=== PATIENT | female | born 1935 | race Caucasian/White ===

== ENCOUNTER → 2017-01-15 | Outpatient (CLI) | payer MEDICARE, BC ==
[2017-01-15 13:38] LABS: ALBUMIN/GLOBULIN RATIO 1.14 (1.00-1.93); BILIRUBIN,TOTAL 0.5 MG/DL (0.2-1.0); CALCIUM LEVEL 9.2 MG/DL (8.8-10.2); CREATININE FOR GFR 0.98 MG/DL (0.55-1.02); GLOMERULAR FILTRATION RATE 57.7 (>32); POTASSIUM SERUM 4.2 MEQ/L (3.5-5.1); TOTAL PROTEIN 7.5 GM/DL (6.4-8.2)
[2017-01-15 13:45] LABS: MEAN CORPUSCULAR HEMOGLOBIN 32.4 pg (27.0-33.0); MEAN CORPUSCULAR HGB CONC 32.8 g/dl (32.0-36.5); MEAN CORPUSCULAR VOLUME 98.8 fl (80.0-96.0); RED CELL DISTRIBUTION WIDTH 12.8 % (11.5-14.5); WHITE BLOOD COUNT 5.7 K/mm3 (4.0-10.0)
== END ==
LOC: M WUC 09:21
PROVIDERS: ATTEND Internal Medicine
DX: J45.909 Unspecified asthma, uncomplicated (principal); I10 Essential (primary) hypertension; E78.00 Pure hypercholesterolemia, unspecified

== ENCOUNTER 2017-06-10 09:59 | Emergency (ER) | payer MEDICARE, BC ==
[~2017-06-10] VITALS: Ht 152.4 cm; Wt 49.1 kg
[2017-06-10] MEDS ORDERED: LISI-538 (10:08)
[2017-06-10] MEDS ORDERED: ALBU17IN (10:08)
[2017-06-10] MEDS ORDERED: ALPR0.25 (10:08)
[2017-06-10] MEDS ORDERED: BISO5TAB5 (10:08)
[2017-06-10 10:56] LABS: BASO # 0.1 K/mm3 (0.0-0.2); BASO % 1.7 % (0.0-1.0); EOS # 0.4 K/mm3 (0.0-0.50); EOS % 5.9 % (0.0-3.0); LARGE UNSTAINED CELL # 0.1 K/mm3 (0.0-0.4); LARGE UNSTAINED CELL % 1.2 % (0.0-4.0); LYMPH % 13.9 % (24.0-44.0); MEAN CORPUSCULAR HEMOGLOBIN 31.7 pg (27.0-33.0); MEAN CORPUSCULAR HGB CONC 33.1 g/dl (32.0-36.5); MONO # 0.4 K/mm3 (0.0-0.8); MONO % 6.1 % (0.0-5.0); NEUTROPHILS % 71.2 % (36.0-66.0); PLATELET COUNT, AUTOMATED 314 k/mm3 (150-450); RED CELL DISTRIBUTION WIDTH 12.6 % (11.5-14.5)
[2017-06-10 11:26] LABS: ALBUMIN 3.4 GM/DL (3.2-5.2); ALBUMIN/GLOBULIN RATIO 0.85 (1.00-1.93); ALKALINE PHOSPHATASE 72 U/L (45-117); ALT/SGPT 19 U/L (12-78); ANION GAP 9 MEQ/L (8-16); AST/SGOT 19 U/L (15-37); BILIRUBIN,DIRECT 0.1 MG/DL (0.0-0.2); BILIRUBIN,TOTAL 0.4 MG/DL (0.2-1.0); BLOOD UREA NITROGEN 15 MG/DL (7-18); CALCIUM LEVEL 8.3 MG/DL (8.8-10.2); CARBON DIOXIDE LEVEL 27 MEQ/L (21-32); CHLORIDE LEVEL 105 MEQ/L (98-107); CREATININE FOR GFR 0.86 MG/DL (0.55-1.02); GLOMERULAR FILTRATION RATE > 60.0 (>32); GLUCOSE, FASTING 99 MG/DL (83-110); POTASSIUM SERUM 4.1 MEQ/L (3.5-5.1); SODIUM LEVEL 141 MEQ/L (136-145); TOTAL PROTEIN 7.4 GM/DL (6.4-8.2)
--- NOTE | 2017-06-10 11:53 | REP ---
CHEST X-RAY: Two views. HISTORY: Chest pain on the right. COMPARISON STUDY: September 25, 2016. FINDINGS: The lungs are hyperinflated free of infiltrate. There are linear opacities in both bases consistent with plate-like atelectasis and/or fibrosis. This is unchanged on the right. New on the left compared to prior study. There is slight blunting of the right lateral pleural angle. The heart is not felt to be enlarged. IMPRESSION: Slight blunting right lateral pleural angle. Bibasilar plate-like atelectasis versus fibrosis. Otherwise no acute disease. Hyperinflation. Signed by Federico Walker MD 06/10/2017 02:37 P
[2017-06-10] MEDS ORDERED: LASI20TA PO (13:06)
[2017-06-10 13:28] VITALS: BP 172/90
--- NOTE | 2017-06-11 06:07 | ECGEPIP ---
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
== END 2017-06-10 13:30 | disposition home or self-care (01) ==
LOC: M ED 09:59
DX: I10 Essential (primary) hypertension (principal); R07.89 Other chest pain; J45.909 Unspecified asthma, uncomplicated; K44.9 Diaphragmatic hernia without obstruction or gangrene; F41.9 Anxiety disorder, unspecified; Z87.448 Personal history of other diseases of urinary system; Z87.891 Personal history of nicotine dependence; Z79.899 Other long term (current) drug therapy; Z88.8 Allergy status to other drugs, medicaments and biological substances; Z88.1 Allergy status to other antibiotic agents

== ENCOUNTER → 2017-07-13 | Outpatient (REF) | payer MEDICARE, BC ==
[~2017-07-13] MED LIST: ALBU17IN INH; ALPR0.25 PO; BISO5TAB5; INDA125TA PO; LASI20TA PO; LISI-538 PO
[2017-07-13 14:47] LABS: FOLATE 23.4 NG/ML
[2017-07-13 15:59] LABS: ALBUMIN 3.6 GM/DL (3.2-5.2); ALBUMIN/GLOBULIN RATIO 0.95 (1.00-1.93); BILIRUBIN,TOTAL 0.5 MG/DL (0.2-1.0); CALCIUM LEVEL 9.2 MG/DL (8.8-10.2); CREATININE FOR GFR 1.08 MG/DL (0.55-1.02); GLOMERULAR FILTRATION RATE 51.5 (>32); TOTAL PROTEIN 7.4 GM/DL (6.4-8.2)
== END ==
LOC: M SFHCPLAZ 10:20
PROVIDERS: ATTEND Internal Medicine
DX: I10 Essential (primary) hypertension (principal); R41.3 Other amnesia

== ENCOUNTER 2017-08-25 08:46 | Day surgery (SDC) | payer MEDICARE, BC ==
[~2017-08-25] VITALS: Ht 162.6 cm; Wt 45.0 kg
[2017-08-25] MEDS ORDERED: LR 1,000 ML IV ONE (09:00)
[2017-08-25] MEDS ORDERED: CEFAZOLIN SOD 1 GM in APPROPRIATE DILUENT 1 EA IV ONE (09:00)
[2017-08-25] MEDS ORDERED: ceFAZolin SOD 1 GM in D5W MINI-BAG PLUS 50 ML IV ONE (09:15)
[2017-08-25] MEDS ORDERED: MUPIROCIN 2% OINT 22 GM TUBE As Ordered ONE (09:32)
[2017-08-25] MEDS ORDERED: ISOVUE-300 61% 50ML VIAL (Q9967) As Ordered ONE (09:33)
[2017-08-25] MEDS ORDERED: LIDOCAINE 1% SDV INJ 30 ML VIAL As Ordered ONE (09:33)
[2017-08-25] MEDS ORDERED: VANCOMYCIN 1000 MG/20 ML VIAL (J3370) As Ordered ONE (09:33)
[2017-08-25] MEDS ORDERED: LIDOCAINE 2% INJ 100 MG/5 ML SDV (FOR ANES.) As Ordered ONE (10:46)
[2017-08-25] MEDS ORDERED: MIDAZOLAM INJ 2 MG/2 ML VIAL (J2250) As Ordered ONE (10:46)
[2017-08-25] MEDS ORDERED: fentaNYL 100 MCG/2 ML INJECTION (J3010) As Ordered ONE (10:46)
[2017-08-25] MEDS ORDERED: PROPOFOL 200 MG/20 ML VIAL As Ordered ONE ×2 (10:46→12:23)
[2017-08-25] MEDS ORDERED: ePHEDrine SULFATE 25 MG/5 ML(5MG/ML) SYRINGE As Ordered ONE (11:31)
[2017-08-25] MEDS ORDERED: PHENYLephrine HCL 500 MCG/5 ML (100MCG/ML) SYRINGE (J2370) As Ordered ONE ×2 (11:32→12:23)
[2017-08-25] MEDS ORDERED: ALPRAZolam 0.25 MG TAB PO PRN (13:45)
[2017-08-25] MEDS ORDERED: LR 1,000 ML IV SCH (13:45)
[2017-08-25] MEDS ORDERED: ONDANSETRON 4MG/2ML VIAL (J2405) IV PRN (13:45)
[2017-08-25] MEDS ORDERED: ACETAMINOPHEN TAB 650MG DOSE (2X325MG) PO PRN (13:45)
[2017-08-25] MEDS ORDERED: ALBUTEROL 90 MCG/ACT 8GM HFA INHALER INH PRN (13:45)
[2017-08-25] MEDS ORDERED: fentaNYL 100 MCG/2 ML INJECTION (J3010) IV PRN (13:45)
--- NOTE | 2017-08-25 14:00 | REP ---
C-ARM VIEW CHEST: C-arm view of the chest is performed during placement of a dual lead pacemaker. Atrial and ventricular leads appear to be in good position. 4 minutes 25 seconds fluoroscopy time utilized. Signed by Jason Moore MD 08/26/2017 04:23 P
[2017-08-25 14:27] VITALS: BP 138/67
--- NOTE | 2017-08-25 14:39 | REP ---
Clinical: Postoperative assessment. Comparison: 08/16/2017. Findings: Mediastinum and cardiac silhouette are within normal limits and stable. Lung garnica demonstrate chronic stable interstitial changes. No consolidation, effusion, or pneumothorax. Skeletal structures demonstrate age-related degenerative change. Impression: Chronic stable changes. No acute cardiopulmonary process appreciated. Signed by Jorge Beltran MD 08/25/2017 01:23 P
[2017-08-25 15:00] VITALS: BP 125/61
[2017-08-25 16:00] VITALS: BP 137/66
[2017-08-25 17:00] VITALS: BP 154/78
[2017-08-25] MEDS: LISINOPRIL 20 MG TAB PO SCH (17:04)
[2017-08-25 20:11] VITALS: BP 102/59
[2017-08-25] MEDS ORDERED: CALCIUM CARBONATE 500 MG CHEW U/D PO PRN (20:30)
[2017-08-26] VITALS: BP 117/63
[2017-08-26] MEDS ORDERED: SLF 3 ML SYR IV PRN (00:45)
--- NOTE | 2017-08-26 01:05 | ECGEPIP ---
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 No left anterior fascicular block noted Electronically Signed On 08-26-2017 1:05:11 EST by Amadeo Pantoja
[2017-08-26 03:35] VITALS: BP 120/69
[2017-08-26] MEDS ORDERED: SLF 3 ML SYR IV SCH (06:00)
[2017-08-26] MEDS ORDERED: ATENOLOL 25 MG TAB PO ONE (06:45)
--- NOTE | 2017-08-26 06:58 | RO ---
DATE OF PROCEDURE: 08/25/2017 PREPROCEDURE DIAGNOSIS: Syncope associated with right bundle branch block and left anterior vesicular block. POSTPROCEDURE DIAGNOSIS: Syncope associated with right bundle branch block and left anterior vesicular block. FINDINGS: Syncope associated with right bundle branch block and left anterior vesicular block. PROCEDURE: Implantation of a permanent dual chamber pacemaker (Biotronic). SURGEON: Billy Lynch MD FRUIT PICKER: None. ANESTHESIA: Lidocaine 1% local, monitored anesthetic care. ESTIMATED BLOOD LOSS: 5 mL. DRAINS: None. COMPLICATIONS: None. BIOPSIES: None. PROCEDURE DESCRIPTION: The patient was prepped and draped over the left pectoral region. 3M Ioban band film was applied. Lidocaine 1% was used for local anesthetic. A left subclavian venogram was performed in real-time using a total of 20 mL consisting of 15 mL of contrast and 5 mL of normal saline which was injected via a vein in the left antecubital region and this was used in real-time to localize the left subclavian vein which was entered by percutaneous technique with a micropuncture needle. This was then guidewire exchanged for a guidewire that came with one of the #6-Fijian sheath. Next, incision approximately 2.5 inches in length was made with a PEAK PlasmaBlade approximately parallel to the left clavicle and 1 cm above the skin at the site of the guidewire. The PEAK PlasmaBlade was used to get through the fatty layer and through the fibrous Lencho's fascia. The pacemaker pocket was then formed in a caudal direction using blunt dissection using two fingers to separate the prepectoral fascia from the Lencho's fascia. Next, the guidewire was pulled through the skin incision site. Next, another micropuncture needle was used to obtain a separate vein access entry at the level of the pectoral muscle and using the first guidewire as a radiographic guide. This was then guidewire exchanged for a guidewire that came with the other #6-Fijian sheath. Next, a #6-Fijian sheath with introducer was placed over the more lateral of the guidewires and was used for vein access for the right ventricular lead. The right ventricular lead was placed into the right ventricle apex position and secured with a total of ten turns. This position was found to be electrically and anatomically satisfactory. No diaphragm stimulation could be palpated on either side of the diaphragm with high voltage pacing of the ventricle. The #6-Fijian sheath was then broken apart and removed and the ventricular lead was secured to the pectoral muscle with the supplied tie down sleeve using two individual sutures consisting of #0 Ethibond. Next, another #6-Fijian sheath was placed over the more medial of the guidewires and advanced into the left subclavian vein. This was used for vein access for the right atrial lead. The right atrial lead was placed into the right atrial appendage position with a preformed J stylet. It was secured with a total of ten turns. This position was found to be electrically and anatomically satisfactory and no diaphragm stimulation could be palpated on either side with high output pacing. The #6-Fijian sheath was broken apart and removed and the atrial lead was secured to the pectoral muscle using the supplied tie down sleeve using two sutures consisting of #0 Ethibond. Next, another #0 Ethibond suture was placed to the pectoral muscle to serve as the tie down for the pacemaker pulse generator. The new pacemaker pulse generator was then plugged into the terminal pins of the ventricle and atrial leads and secured by tightening the set screws with the Hex screwdriver. The excess lead material was coiled underneath the pacemaker pulse generator and placed along with the pacemaker generator into the pacemaker pocket. The deep layer was closed using individual sutures consisting of #2-0 Vicryl. The skin was closed using subcuticular stitch consisting of #4-0 Biosyn with the first suture tied deep and the last suture pulled through the skin 1 cm lateral to the end of the incision. The suture was then snipped at the level of the skin. Two layers of Dermabond was applied. Next Steri-Strips were applied cross-humphrey across the length of the incision. The pacemaker pulse generator implanted was a T-ZONE Edora 8 DR-T with serial number [id number]. The right ventricle lead implanted was a T-ZONE Solia S53 with serial number [id number]. Testing in the operating room with the pulse analyzer and bipolar configuration for the right ventricle lead showed captured threshold of 0.9 volts of 0.4 ms with R wave amplitude of 6.6 mV and lead impedance of 741 ohms. The atrial lead implanted was a Biotronic Solia S45 with serial number [id number]. Final testing in the operating room with the pulse analyzer for the right atrial lead showed captured threshold of 0.9 volts at 0.4 ms with P wave amplitude of 5.7 mV and lead impedance of 448 ohms.
[2017-08-26 07:40] VITALS: BP 116/62
--- NOTE | 2017-08-26 08:31 | REP ---
Clinical: Status post pacemaker. Technique: PA and lateral. Findings: Dual lead pacemaker with tips overlying the right atrium and right ventricle. Mediastinum and cardiac silhouette are normal. The lung garnica demonstrate stable chronic changes without acute consolidation, effusion, or pneumothorax. Skeletal structures are intact. Impression: Status post pacemaker. No pneumothorax. No acute cardiopulmonary process. Signed by Jorge Beltran MD 08/26/2017 08:23 A
[2017-08-26 09:13] VITALS: BP 134/68
[2017-08-26] MEDS: LISINOPRIL 20 MG TAB PO SCH (09:13)
[2017-08-26 09:35] VITALS: BP 116/70
[2017-08-26 09:41] VITALS: BP 116/70
== END 2017-08-26 12:25 | disposition home or self-care (01) ==
LOC: M SDC 08:46 → M PCU 14:27 → M SDC 08-26 12:25
PROVIDERS: ATTEND Internal Medicine Cardiovascular Disease
DX: R55 Syncope and collapse (principal); I45.10 Unspecified right bundle-branch block; I44.4 Left anterior fascicular block; I10 Essential (primary) hypertension; Z79.899 Other long term (current) drug therapy; J45.909 Unspecified asthma, uncomplicated; Z87.891 Personal history of nicotine dependence; Z92.21 Personal history of antineoplastic chemotherapy; Z85.51 Personal history of malignant neoplasm of bladder
CPT/HCPCS: 33208; 71010; 71020; 76000; 93005; C1785; C1898; J0690; J2250; J2370; J3010; Q9967

== ENCOUNTER → 2017-11-22 | Outpatient (CLI) | payer MEDICARE, BC | LOC: M RAD 16:41 | DX: I62.03 Nontraumatic chronic subdural hemorrhage (principal); I73.9 Peripheral vascular disease, unspecified; G30.1 Alzheimer's disease with late onset | CPT/HCPCS: 70450 ==

== ENCOUNTER → 2017-11-26 | Outpatient (CLI) | payer MEDICARE, BC ==
[2017-11-26 13:25] LABS: BASO # 0.1 10^3/uL (0.0-0.2); BASO % 1.3 % (0.0-1.0); EOS # 0.2 10^3/uL (0.0-0.50); EOS % 2.7 % (0.0-3.0); HEMATOCRIT 37.4 % (36.0-47.0); HEMOGLOBIN 12.3 g/dl (12.0-16.0); IMMATURE GRANULOCYTE % 0.3 % (0-3.0); LYMPH # 1.1 10^3/uL (1.5-4.5); LYMPH % 18.1 % (24.0-44.0); MEAN CORPUSCULAR HEMOGLOBIN 31.6 pg (27.0-33.0); MEAN CORPUSCULAR HGB CONC 32.9 g/dl (32.0-36.5); MEAN CORPUSCULAR VOLUME 96.1 fl (80.0-96.0); MONO # 0.6 10^3/uL (0.0-0.8); NEUTROPHILS # 4.3 10^3/uL (1.8-7.7); NEUTROPHILS % 67.6 % (36.0-66.0); PLATELET COUNT, AUTOMATED 277 10^3/uL (150-450); RED BLOOD COUNT 3.89 10^6/uL (4.00-5.40); RED CELL DISTRIBUTION WIDTH 13.3 % (11.5-14.5); WHITE BLOOD COUNT 6.3 10^3/uL (4.0-10.0)
[2017-11-26 13:36] LABS: INR 1.08; PROTHROMBIN TIME 14.2 SECONDS (12.4-14.5)
[2017-11-26 13:37] LABS: PARTIAL THROMBOPLASTIN TIME 30.1 SECONDS (26.8-37.9)
[2017-11-26 13:40] LABS: COLLAGEN EPINEPHRINE 88 SECONDS (74-162)
[2017-11-26 14:00] LABS: ALBUMIN 3.6 GM/DL (3.2-5.2); ALKALINE PHOSPHATASE 62 U/L (45-117); ALT/SGPT 24 U/L (12-78); ANION GAP 3 MEQ/L (8-16); AST/SGOT 26 U/L (7-37); BILIRUBIN,TOTAL 0.4 MG/DL (0.2-1.0); BLOOD UREA NITROGEN 17 MG/DL (7-18); CALCIUM LEVEL 9.4 MG/DL (8.8-10.2); CARBON DIOXIDE LEVEL 35 MEQ/L (21-32); CHLORIDE LEVEL 99 MEQ/L (98-107); CREATININE FOR GFR 0.84 MG/DL (0.55-1.30); GLOMERULAR FILTRATION RATE > 60.0 (>32); GLUCOSE, FASTING 89 MG/DL (70-100); POTASSIUM SERUM 4.3 MEQ/L (3.5-5.1); SODIUM LEVEL 137 MEQ/L (136-145); TOTAL PROTEIN 7.2 GM/DL (6.4-8.2)
== END ==
LOC: M LAB 12:34
DX: Z01.818 Encounter for other preprocedural examination (principal); I62.03 Nontraumatic chronic subdural hemorrhage; F09 Unspecified mental disorder due to known physiological condition; E78.00 Pure hypercholesterolemia, unspecified; I10 Essential (primary) hypertension; F41.9 Anxiety disorder, unspecified; I47.1 Supraventricular tachycardia; H53.30 Unspecified disorder of binocular vision; Z85.51 Personal history of malignant neoplasm of bladder; Z95.0 Presence of cardiac pacemaker
CPT/HCPCS: 71046

== ENCOUNTER → 2017-11-29 | Outpatient (REF) | payer MEDICARE, BC | LOC: M LAB REF 15:09 | DX: Z01.818 Encounter for other preprocedural examination (principal); I62.03 Nontraumatic chronic subdural hemorrhage; Z95.0 Presence of cardiac pacemaker; Z85.51 Personal history of malignant neoplasm of bladder | CPT/HCPCS: 87086 ==

== ENCOUNTER 2017-12-03 05:35 | Inpatient (IN) | payer MEDICARE, BC ==
[2017-12-03] MEDS: LR 1,000 ML IV ×2 (06:00→12:15)
[2017-12-03] MEDS ORDERED: REMIFENTANIL 1MG 3ML VIAL As Ordered (06:55)
[2017-12-03] MEDS ORDERED: GLYCOPYRROLATE INJ 0.2 MG/ML 2 ML VIAL As Ordered (06:55)
[2017-12-03] MEDS ORDERED: PROPOFOL 200 MG/20 ML VIAL As Ordered (06:55)
[2017-12-03] MEDS ORDERED: ROCURONIUM BROMIDE 50 MG/5 ML VIAL As Ordered (06:55)
[2017-12-03] MEDS ORDERED: LIDOCAINE 2% INJ 100 MG/5 ML SDV (FOR ANES.) As Ordered (06:55)
[2017-12-03] MEDS ORDERED: KETOROLAC 60 MG/2 ML VIAL (J1885) As Ordered (06:55)
[2017-12-03] MEDS ORDERED: NEOSTIGMINE 10 MG/10 ML VIAL (J2710) As Ordered (06:55)
[2017-12-03] MEDS ORDERED: LIDOCAINE 2% JELLY 30 ML As Ordered (06:55)
[2017-12-03] MEDS ORDERED: MIDAZOLAM INJ 2 MG/2 ML VIAL (J2250) As Ordered (06:55)
[2017-12-03] MEDS ORDERED: dexameTHASONE 4 MG/ML 1ML VIAL (J1100) As Ordered (06:55)
[2017-12-03] MEDS ORDERED: ONDANSETRON 4MG/2ML VIAL (J2405) As Ordered (06:55)
[2017-12-03] MEDS ORDERED: fentaNYL 100 MCG/2 ML INJECTION (J3010) As Ordered (06:55)
[2017-12-03] MEDS: levETIRAcetam 250MG TABLET (KEPPRA) PO ×2 (09:00→20:48)
[2017-12-03 09:59] LABS: ABG BASE EXCESS 1.1 (-2.0-2.0); ABG DEVICE MECHAN. VENT; ABG FIO2 54; ABG HCO3 25.5 MEQ/L (22.0-26.0); ABG PARTIAL PRESSURE CO2 40.1 mmHg (35.0-45.0); ABG PARTIAL PRESSURE O2 280.9 mmHg (75.0-100.0); ABG SITE ART LINE; ABG STANDARD HCO3 25.5 MEQ/L (22.0-26.0); ABG TOTAL CO2 26.8 MEQ/L (23.0-31.0); ABG pH (ARTERIAL) 7.422 UNITS (7.350-7.450)
[2017-12-03] MEDS: THROMBIN SOLN 20,000 UNITS KIT As Ordered (10:02)
[2017-12-03] MEDS: levETIRAcetam INJection 500 MG in D5W MINI-BAG PLUS 100 ML IV (10:30)
[2017-12-03] MEDS ORDERED: PHENYLephrine HCL 500 MCG/5 ML (100MCG/ML) SYRINGE (J2370) As Ordered (10:40)
[2017-12-03] MEDS ORDERED: ePHEDrine INJ 50 MG/ML VIAL As Ordered (10:40)
[2017-12-03] MEDS: LIDOCAINE W/EPINEPHRINE 1% 20ML VIAL As Ordered (11:15)
[2017-12-03] MEDS ORDERED: fentaNYL 100 MCG/2 ML INJECTION (J3010) IV (12:15)
[2017-12-03] MEDS ORDERED: ONDANSETRON 4MG/2ML VIAL (J2405) IV ×2 (12:15→13:15)
[2017-12-03] MEDS ORDERED: ALBUTEROL 6.7GM INHALER **FOR ANES. CART/OMNICELL ONLY INH (12:30)
[2017-12-03] MEDS: KCL 20MEQ IN D5/0.45NS 1000ML 1,000 ML IV ×2 (12:52→23:11)
[2017-12-03] MEDS: ACETAMINOPHEN TAB 650MG DOSE (2X325MG) PO (13:14)
[2017-12-03] MEDS: KETOROLAC 30 MG/ML VIAL (J1885) IV ×2 (14:26→23:11)
[2017-12-03] MEDS ORDERED: CEFAZOLIN SOD 1 GM in APPROPRIATE DILUENT 1 EA IV (15:00)
[2017-12-03] MEDS: CEFAZOLIN SOD 1 GM in APPROPRIATE DILUENT 1 EA IV (16:13)
[2017-12-03] MEDS: ALPRAZolam 0.25 MG TAB PO (20:48)
[2017-12-03 23:52] LABS: HEMATOCRIT 28.7 % (36.0-47.0); HEMOGLOBIN 9.6 g/dl (12.0-16.0); MEAN CORPUSCULAR HEMOGLOBIN 32.3 pg (27.0-33.0); MEAN CORPUSCULAR HGB CONC 33.4 g/dl (32.0-36.5); MEAN CORPUSCULAR VOLUME 96.6 fl (80.0-96.0); PLATELET COUNT, AUTOMATED 185 10^3/uL (150-450); RED BLOOD COUNT 2.97 10^6/uL (4.00-5.40); RED CELL DISTRIBUTION WIDTH 13.4 % (11.5-14.5)
[2017-12-04 00:15] LABS: INR 1.11; PROTHROMBIN TIME 14.5 SECONDS (12.4-14.5)
[2017-12-04] MEDS: CEFAZOLIN SOD 1 GM in APPROPRIATE DILUENT 1 EA IV ×3 (00:37→17:04)
[2017-12-04 01:45] LABS: ALBUMIN 2.7 GM/DL (3.2-5.2); ALBUMIN/GLOBULIN RATIO 0.87 (1.00-1.93); ALKALINE PHOSPHATASE 44 U/L (45-117); ALT/SGPT 20 U/L (12-78); AST/SGOT 24 U/L (7-37); BILIRUBIN,DIRECT 0.1 MG/DL (0.0-0.2); BILIRUBIN,TOTAL 0.4 MG/DL (0.2-1.0); TOTAL PROTEIN 5.8 GM/DL (6.4-8.2)
[2017-12-04 04:42] LABS: HEMOGLOBIN 9.6 g/dl (12.0-16.0); MEAN CORPUSCULAR HEMOGLOBIN 31.5 pg (27.0-33.0); MEAN CORPUSCULAR HGB CONC 33.1 g/dl (32.0-36.5); MEAN CORPUSCULAR VOLUME 95.1 fl (80.0-96.0); PLATELET COUNT, AUTOMATED 226 10^3/uL (150-450); RED BLOOD COUNT 3.05 10^6/uL (4.00-5.40); RED CELL DISTRIBUTION WIDTH 13.4 % (11.5-14.5); WHITE BLOOD COUNT 7.6 10^3/uL (4.0-10.0)
[2017-12-04 05:08] LABS: ALBUMIN 2.6 GM/DL (3.2-5.2); ALBUMIN/GLOBULIN RATIO 0.84 (1.00-1.93); ALKALINE PHOSPHATASE 45 U/L (45-117); ALT/SGPT 18 U/L (12-78); AST/SGOT 23 U/L (7-37); BILIRUBIN,DIRECT 0.1 MG/DL (0.0-0.2); BILIRUBIN,TOTAL 0.5 MG/DL (0.2-1.0); TOTAL PROTEIN 5.7 GM/DL (6.4-8.2)
[2017-12-04 05:09] LABS: ALBUMIN 2.8 GM/DL (3.2-5.2); ALBUMIN/GLOBULIN RATIO 1.08 (1.00-1.93); ALKALINE PHOSPHATASE 42 U/L (45-117); ALT/SGPT 17 U/L (12-78); ANION GAP 6 MEQ/L (8-16); AST/SGOT 22 U/L (7-37); BILIRUBIN,TOTAL 0.5 MG/DL (0.2-1.0); BLOOD UREA NITROGEN 11 MG/DL (7-18); CALCIUM LEVEL 7.9 MG/DL (8.8-10.2); CARBON DIOXIDE LEVEL 30 MEQ/L (21-32); CHLORIDE LEVEL 100 MEQ/L (98-107); CREATININE FOR GFR 0.61 MG/DL (0.55-1.30); GLOMERULAR FILTRATION RATE > 60.0 (>32); GLUCOSE, FASTING 130 MG/DL (70-100); POTASSIUM SERUM 4.2 MEQ/L (3.5-5.1); SODIUM LEVEL 136 MEQ/L (136-145); TOTAL PROTEIN 5.4 GM/DL (6.4-8.2)
[2017-12-04 05:10] LABS: OSMOLALITY SERUM 281 MOSM/KG (280-301)
[2017-12-04 05:37] LABS: OSMOLALITY URINE 781 MOSM/KG (500-800)
[2017-12-04 05:52] LABS: CHLORIDE,RANDOM URINE 206 MEQ/L; SODIUM,RANDOM URINE 117 MEQ/L
[2017-12-04] MEDS: ACETAMINOPH W/CODEINE #3 TAB UD PO ×2 (06:19→12:14)
[2017-12-04] MEDS: levETIRAcetam 250MG TABLET (KEPPRA) PO ×2 (09:01→20:23)
[2017-12-04] MEDS: INDAPAMIDE 1.25MG TABLET PO (09:01)
[2017-12-04] MEDS: ALPRAZolam 0.25 MG TAB PO (09:01)
[2017-12-04] MEDS ORDERED: LORazepam 2 MG/ML VIAL (J2060) As Ordered (14:28)
[2017-12-04] MEDS: LORazepam 2 MG/ML VIAL (J2060) IV (14:33)
[2017-12-04] MEDS ORDERED: LORazepam 2 MG/ML VIAL (J2060) IV (17:00)
[2017-12-05] MEDS: CEFAZOLIN SOD 1 GM in APPROPRIATE DILUENT 1 EA IV ×3 (00:19→16:45)
[2017-12-05] MEDS: ALPRAZolam 0.25 MG TAB PO (01:49)
[2017-12-05] MEDS: ACETAMINOPHEN TAB 650MG DOSE (2X325MG) PO (02:22)
[2017-12-05 03:13] LABS: OSMOLALITY URINE 301 MOSM/KG (500-800)
[2017-12-05 03:21] LABS: CHLORIDE,RANDOM URINE 118 MEQ/L; POTASSIUM RANDOM URINE 14.1 MEQ/L; SODIUM,RANDOM URINE 117 MEQ/L
[2017-12-05 05:33] LABS: HEMATOCRIT 31.2 % (36.0-47.0); HEMOGLOBIN 10.6 g/dl (12.0-16.0); MEAN CORPUSCULAR HEMOGLOBIN 32.2 pg (27.0-33.0); MEAN CORPUSCULAR VOLUME 94.8 fl (80.0-96.0); PLATELET COUNT, AUTOMATED 219 10^3/uL (150-450); RED BLOOD COUNT 3.29 10^6/uL (4.00-5.40); RED CELL DISTRIBUTION WIDTH 13.1 % (11.5-14.5); WHITE BLOOD COUNT 8.1 10^3/uL (4.0-10.0)
[2017-12-05 06:03] LABS: OSMOLALITY SERUM 274 MOSM/KG (280-301)
[2017-12-05 06:16] LABS: ALBUMIN 2.8 GM/DL (3.2-5.2); ALBUMIN/GLOBULIN RATIO 0.97 (1.00-1.93); ALKALINE PHOSPHATASE 52 U/L (45-117); ALT/SGPT 20 U/L (12-78); ANION GAP 7 MEQ/L (8-16); AST/SGOT 24 U/L (7-37); BILIRUBIN,TOTAL 0.5 MG/DL (0.2-1.0); BLOOD UREA NITROGEN 10 MG/DL (7-18); CARBON DIOXIDE LEVEL 30 MEQ/L (21-32); CHLORIDE LEVEL 98 MEQ/L (98-107); GLOMERULAR FILTRATION RATE > 60.0 (>32); GLUCOSE, FASTING 99 MG/DL (70-100); POTASSIUM SERUM 3.7 MEQ/L (3.5-5.1); SODIUM LEVEL 135 MEQ/L (136-145); TOTAL PROTEIN 5.7 GM/DL (6.4-8.2)
[2017-12-05] MEDS: INDAPAMIDE 1.25MG TABLET PO (08:10)
[2017-12-05] MEDS: ACETAMINOPH W/CODEINE #3 TAB UD PO ×2 (08:11→16:07)
[2017-12-05] MEDS: levETIRAcetam 250MG TABLET (KEPPRA) PO ×2 (08:11→20:32)
[2017-12-06] MEDS: CEFAZOLIN SOD 1 GM in APPROPRIATE DILUENT 1 EA IV ×3 (00:08→17:12)
[2017-12-06] MEDS: ALPRAZolam 0.25 MG TAB PO ×2 (03:21→10:17)
[2017-12-06 04:34] LABS: BASO % 0.4 % (0.0-1.0); EOS # 0.6 10^3/uL (0.0-0.50); EOS % 8.2 % (0.0-3.0); HEMATOCRIT 34.7 % (36.0-47.0); HEMOGLOBIN 11.9 g/dl (12.0-16.0); IMMATURE GRANULOCYTE % 0.5 % (0-3.0); LYMPH # 0.9 10^3/uL (1.5-4.5); LYMPH % 12.5 % (24.0-44.0); MEAN CORPUSCULAR HEMOGLOBIN 32.3 pg (27.0-33.0); MEAN CORPUSCULAR HGB CONC 34.3 g/dl (32.0-36.5); MEAN CORPUSCULAR VOLUME 94.3 fl (80.0-96.0); MONO # 0.7 10^3/uL (0.0-0.8); MONO % 9.9 % (0.0-5.0); NEUTROPHILS # 5.1 10^3/uL (1.8-7.7); NEUTROPHILS % 68.5 % (36.0-66.0); PLATELET COUNT, AUTOMATED 260 10^3/uL (150-450); RED BLOOD COUNT 3.68 10^6/uL (4.00-5.40); RED CELL DISTRIBUTION WIDTH 12.9 % (11.5-14.5); WHITE BLOOD COUNT 7.5 10^3/uL (4.0-10.0)
[2017-12-06 04:48] LABS: ANION GAP 6 MEQ/L (8-16); BLOOD UREA NITROGEN 11 MG/DL (7-18); CALCIUM LEVEL 8.8 MG/DL (8.8-10.2); CARBON DIOXIDE LEVEL 31 MEQ/L (21-32); CHLORIDE LEVEL 98 MEQ/L (98-107); GLOMERULAR FILTRATION RATE > 60.0 (>32); GLUCOSE, FASTING 95 MG/DL (70-100); POTASSIUM SERUM 3.6 MEQ/L (3.5-5.1); SODIUM LEVEL 135 MEQ/L (136-145)
[2017-12-06] MEDS: INDAPAMIDE 1.25MG TABLET PO (08:45)
[2017-12-06] MEDS: levETIRAcetam 250MG TABLET (KEPPRA) PO ×2 (08:45→20:42)
[2017-12-07] MEDS: ALPRAZolam 0.25 MG TAB PO (00:49)
[2017-12-07] MEDS: CEFAZOLIN SOD 1 GM in APPROPRIATE DILUENT 1 EA IV ×3 (00:49→09:00)
[2017-12-07] MEDS: levETIRAcetam 250MG TABLET (KEPPRA) PO ×2 (08:18→09:00)
[2017-12-07] MEDS: INDAPAMIDE 1.25MG TABLET PO ×2 (08:19→09:00)
[2017-12-07 14:47] LABS: HEMATOCRIT 37.8 % (36.0-47.0); HEMOGLOBIN 12.8 g/dl (12.0-16.0); MEAN CORPUSCULAR HEMOGLOBIN 31.9 pg (27.0-33.0); MEAN CORPUSCULAR HGB CONC 33.9 g/dl (32.0-36.5); MEAN CORPUSCULAR VOLUME 94.3 fl (80.0-96.0); PLATELET COUNT, AUTOMATED 299 10^3/uL (150-450); RED BLOOD COUNT 4.01 10^6/uL (4.00-5.40); RED CELL DISTRIBUTION WIDTH 12.8 % (11.5-14.5); WHITE BLOOD COUNT 7.8 10^3/uL (4.0-10.0)
[2017-12-07 15:11] LABS: ANION GAP 6 MEQ/L (8-16); BLOOD UREA NITROGEN 17 MG/DL (7-18); CALCIUM LEVEL 9.1 MG/DL (8.8-10.2); CARBON DIOXIDE LEVEL 31 MEQ/L (21-32); CHLORIDE LEVEL 95 MEQ/L (98-107); CREATININE FOR GFR 0.74 MG/DL (0.55-1.30); GLOMERULAR FILTRATION RATE > 60.0 (>32); GLUCOSE, FASTING 122 MG/DL (70-100); POTASSIUM SERUM 3.8 MEQ/L (3.5-5.1); SODIUM LEVEL 132 MEQ/L (136-145)
== END 2017-12-07 16:00 | disposition home health service (06) | DRG 25 ==
LOC: M OR 05:35 → M ICU 12:37 → M PCU 12-06 18:52
PROC: 009 Central Nervous System and Cranial Nerves, Drainage (ICD-10-PCS; principal; 2017-12-03 07:30)
DX: I62.02 Nontraumatic subacute subdural hemorrhage (principal); G93.40 Encephalopathy, unspecified; I62.03 Nontraumatic chronic subdural hemorrhage; H54.8 Legal blindness, as defined in USA; F03.90 Unspecified dementia, unspecified severity, without behavioral disturbance, psychotic disturbance, mood disturbance, and anxiety; I10 Essential (primary) hypertension; M19.90 Unspecified osteoarthritis, unspecified site; G47.00 Insomnia, unspecified; J45.909 Unspecified asthma, uncomplicated; H35.30 Unspecified macular degeneration; Z85.51 Personal history of malignant neoplasm of bladder; Z88.8 Allergy status to other drugs, medicaments and biological substances; Z95.0 Presence of cardiac pacemaker; F09 Unspecified mental disorder due to known physiological condition

== ENCOUNTER → 2018-02-16 | Outpatient (REF) | payer MEDICARE, BC ==
[2018-02-16 07:13] LABS: ANION GAP 5 MEQ/L (8-16); BLOOD UREA NITROGEN 18 MG/DL (7-18); CALCIUM LEVEL 9.2 MG/DL (8.8-10.2); CARBON DIOXIDE LEVEL 30 MEQ/L (21-32); CHLORIDE LEVEL 96 MEQ/L (98-107); CREATININE FOR GFR 0.81 MG/DL (0.55-1.30); GLOMERULAR FILTRATION RATE > 60.0 (>32); GLUCOSE, FASTING 103 MG/DL (70-100); POTASSIUM SERUM 3.7 MEQ/L (3.5-5.1); SODIUM LEVEL 131 MEQ/L (136-145)
== END ==
LOC: SKLAB8 08:00
DX: I10 Essential (primary) hypertension (principal)
CPT/HCPCS: 36415

== ENCOUNTER 2018-03-08 18:03 | Emergency (ER) | payer MEDICARE, BC ==
[2018-03-08] MEDS: LORazepam 2 MG TAB PO (18:34)
== END 2018-03-08 20:25 | disposition home or self-care (01) ==
LOC: M ED 18:03
DX: F03.90 Unspecified dementia, unspecified severity, without behavioral disturbance, psychotic disturbance, mood disturbance, and anxiety (principal); I10 Essential (primary) hypertension; J45.909 Unspecified asthma, uncomplicated; H35.30 Unspecified macular degeneration; Z79.899 Other long term (current) drug therapy; Z88.1 Allergy status to other antibiotic agents; Z88.5 Allergy status to narcotic agent; Z88.8 Allergy status to other drugs, medicaments and biological substances
CPT/HCPCS: 99284

== ENCOUNTER 2018-03-15 08:46 | Inpatient (IN) | payer MEDICARE, BC ==
[2018-03-15] MEDS: ALPRAZolam 0.25 MG TAB PO ×3 (10:48→21:27)
[2018-03-15 11:22] LABS: BASO # 0.1 10^3/uL (0.0-0.2); BASO % 1.1 % (0.0-1.0); EOS # 0.3 10^3/uL (0.0-0.50); EOS % 4.6 % (0.0-3.0); HEMATOCRIT 40.5 % (36.0-47.0); HEMOGLOBIN 13.4 g/dl (12.0-15.5); IMMATURE GRANULOCYTE % 0.3 % (0-3.0); LYMPH # 1.5 10^3/uL (1.5-4.5); LYMPH % 22.5 % (24.0-44.0); MEAN CORPUSCULAR HEMOGLOBIN 31.5 pg (27.0-33.0); MEAN CORPUSCULAR HGB CONC 33.1 g/dl (32.0-36.5); MEAN CORPUSCULAR VOLUME 95.1 fl (80.0-96.0); MONO # 0.6 10^3/uL (0.0-0.8); MONO % 9.7 % (0.0-5.0); NEUTROPHILS % 61.8 % (36.0-66.0); PLATELET COUNT, AUTOMATED 228 10^3/uL (150-450); RED BLOOD COUNT 4.26 10^6/uL (4.00-5.40); RED CELL DISTRIBUTION WIDTH 13.7 % (11.5-14.5); WHITE BLOOD COUNT 6.5 10^3/uL (4.0-10.0)
[2018-03-15 11:35] LABS: ANION GAP 5 MEQ/L (8-16); BLOOD UREA NITROGEN 16 MG/DL (7-18); CALCIUM LEVEL 9.4 MG/DL (8.8-10.2); CARBON DIOXIDE LEVEL 30 MEQ/L (21-32); CHLORIDE LEVEL 108 MEQ/L (98-107); CREATININE FOR GFR 0.99 MG/DL (0.55-1.30); GLOMERULAR FILTRATION RATE 56.9 (>32); GLUCOSE, FASTING 100 MG/DL (70-100); POTASSIUM SERUM 3.8 MEQ/L (3.5-5.1); SODIUM LEVEL 143 MEQ/L (136-145)
[2018-03-15 11:47] LABS: ALBUMIN 4.1 GM/DL (3.2-5.2); ALBUMIN/GLOBULIN RATIO 1.14 (1.00-1.93); ALKALINE PHOSPHATASE 57 U/L (45-117); ALT/SGPT 27 U/L (12-78); AST/SGOT 20 U/L (7-37); BILIRUBIN,DIRECT 0.2 MG/DL (0.0-0.2); BILIRUBIN,TOTAL 0.6 MG/DL (0.2-1.0); SALICYLATE LEVEL < 1.7 MG/DL (5.0-30.0); TOTAL PROTEIN 7.7 GM/DL (6.4-8.2)
[2018-03-15 11:49] LABS: ACETAMINOPHEN LEVEL < 2.0 UG/ML (10.0-30.0); ETHYL ALCOHOL (ETHANOL) < 0.003 % (0.000-0.010)
[2018-03-15 13:11] LABS: AMPHETAMINES LEVEL URINE NEGATIVE (NEGATIVE); BARBITURATES URINE NEGATIVE (NEGATIVE); BENZODIAZEPINES URINE POSITIVE (NEGATIVE); CANNABINOIDS URINE NEGATIVE (NEGATIVE); COCAINE METABOLITE URINE NEGATIVE (NEGATIVE); METHADONE URINE NEGATIVE (NEGATIVE); OPIATES URINE NEGATIVE (NEGATIVE); PHENCYCLIDINE URINE NEGATIVE (NEGATIVE)
[2018-03-15] MEDS ORDERED: MAALOX 30 ML SUSP *UDC PO (17:45)
[2018-03-15] MEDS ORDERED: MOM 30ML SUSPENSION UDC PO (17:45)
[2018-03-15] MEDS ORDERED: traZODone 50 MG TAB PO (17:45)
[2018-03-15] MEDS: QUEtiapine FUMARATE 50 MG TAB PO (21:27)
[2018-03-16] MEDS: QUEtiapine FUMARATE 50 MG TAB PO (09:00)
[2018-03-16] MEDS: ALPRAZolam 0.25 MG TAB PO ×2 (09:00→13:00)
[2018-03-16] MEDS ORDERED: ALBUTEROL SULFATE 2.5 MG/0.5 ML INH NEB SOLN INH (09:15)
[2018-03-16] MEDS ORDERED: BISACODYL 10 MG SUPP PR (09:15)
[2018-03-16] MEDS: LIDOCAINE 5% (LIDODERM) PATCH TD (14:00)
[2018-03-16] MEDS: QUEtiapine FUMARATE 100 MG TAB PO (21:00)
[2018-03-16] MEDS: **NOTE PATIENT COMMENT** MISC XX (21:52)
[2018-03-17] MEDS: QUEtiapine FUMARATE 50 MG TAB PO (09:38)
[2018-03-17] MEDS: LORazepam 0.5 MG TAB PO (09:38)
[2018-03-17] MEDS: LIDOCAINE 5% (LIDODERM) PATCH TD (09:42)
[2018-03-17] MEDS ORDERED: PILL CRUSHER/CUTTER 1 EACH XX (11:15)
[2018-03-17 14:13] LABS: KETONE, URINE AUTO RFX NEGATIVE (NEGATIVE); LEUKOCYTE ESTERASE UR AUTO RFX NEGATIVE (NEGATIVE); NITRITE, URINE AUTO RFX NEGATIVE (NEGATIVE); RBC, URINE AUTO RFX 2 /HPF (0-3); SPECIFIC GRAVITY UR AUTO RFX 1.008 (1.002-1.035); SQUAM EPITHELIAL CELL UR AURFX 0 /HPF (0-6); WBC, URINE AUTO RFX 4 /HPF (0-3)
[2018-03-17] MEDS: QUEtiapine FUMARATE 100 MG TAB PO (21:00)
[2018-03-17] MEDS: **NOTE PATIENT COMMENT** MISC XX (21:22)
[2018-03-18] MEDS: LIDOCAINE 5% (LIDODERM) PATCH TD (07:47)
[2018-03-18] MEDS: QUEtiapine FUMARATE 50 MG TAB PO (09:00)
[2018-03-18] MEDS: OLANZapine INTRAMUSCULAR 10 MG VIAL (S0166) IM (10:24)
[2018-03-18] MEDS: **NOTE PATIENT COMMENT** MISC XX (21:00)
[2018-03-18] MEDS: QUEtiapine FUMARATE 100 MG TAB PO (21:00)
[2018-03-19] MEDS: QUEtiapine FUMARATE 50 MG TAB PO ×2 (08:54→13:40)
[2018-03-19] MEDS: **NOTE PATIENT COMMENT** MISC XX (21:00)
[2018-03-19] MEDS: QUEtiapine FUMARATE 100 MG TAB PO (21:00)
[2018-03-20] MEDS: LORazepam 0.5 MG TAB PO ×2 (06:23→09:04)
[2018-03-20] MEDS: QUEtiapine FUMARATE 50 MG TAB PO ×2 (09:04→15:51)
[2018-03-20] MEDS: **NOTE PATIENT COMMENT** MISC XX (20:26)
[2018-03-20] MEDS: QUEtiapine FUMARATE 100 MG TAB PO (20:30)
[2018-03-20] MEDS: ACETAMINOPHEN TAB 650MG DOSE (2X325MG) PO (20:31)
[2018-03-21] MEDS: QUEtiapine FUMARATE 50 MG TAB PO (09:37)
== END 2018-03-21 10:55 | DRG 884 ==
LOC: M ED 08:46 → M ED INP 15:09 → M PSY 16:43
DX: F03.91 Unspecified dementia, unspecified severity, with behavioral disturbance (principal); R45.851 Suicidal ideations; F10.10 Alcohol abuse, uncomplicated; Z79.899 Other long term (current) drug therapy; Z88.5 Allergy status to narcotic agent; Z88.8 Allergy status to other drugs, medicaments and biological substances; I10 Essential (primary) hypertension; G47.00 Insomnia, unspecified; M19.90 Unspecified osteoarthritis, unspecified site; J45.909 Unspecified asthma, uncomplicated; H35.30 Unspecified macular degeneration; Z95.0 Presence of cardiac pacemaker; R26.89 Other abnormalities of gait and mobility; M54.5 Low back pain; K59.00 Constipation, unspecified

== ENCOUNTER → 2018-04-14 | Outpatient (REF) | payer MEDICARE, BC ==
[2018-04-17 00:08] LABS: LEVETIRACETAM (KEPPRA) None Detected ug/mL (10.0-40.0)
== END ==
LOC: SKLAB5 07:30
DX: F03.91 Unspecified dementia, unspecified severity, with behavioral disturbance (principal)
CPT/HCPCS: 36415

== ENCOUNTER → 2018-05-11 | Outpatient (REF) | payer MEDICARE, BC | LOC: M LAB REF 18:05 | DX: R19.5 Other fecal abnormalities (principal) | CPT/HCPCS: 88305 ==

== ENCOUNTER → 2018-05-25 | Outpatient (REF) | payer MEDICARE, BC ==
[2018-05-25 13:47] LABS: HEMATOCRIT 36.4 % (36.0-47.0); MEAN CORPUSCULAR VOLUME 97.1 fl (80.0-96.0); PLATELET COUNT, AUTOMATED 235 10^3/uL (150-450); RED BLOOD COUNT 3.75 10^6/uL (4.00-5.40); RED CELL DISTRIBUTION WIDTH 13.4 % (11.5-14.5); WHITE BLOOD COUNT 10.2 10^3/uL (4.0-10.0)
[2018-05-25 14:19] LABS: ANION GAP 9 MEQ/L (8-16); BLOOD UREA NITROGEN 22 MG/DL (7-18); CARBON DIOXIDE LEVEL 30 MEQ/L (21-32); CHLORIDE LEVEL 99 MEQ/L (98-107); CREATININE FOR GFR 0.99 MG/DL (0.55-1.30); GLOMERULAR FILTRATION RATE 56.9 (>32); GLUCOSE, FASTING 125 MG/DL (70-100); NT-PRO BNP 403 PG/ML (<450); POTASSIUM SERUM 4.2 MEQ/L (3.5-5.1); SODIUM LEVEL 138 MEQ/L (136-145)
== END ==
LOC: SKLAB5 12:07
DX: J44.9 Chronic obstructive pulmonary disease, unspecified (principal); R60.9 Edema, unspecified
CPT/HCPCS: 71045

== ENCOUNTER → 2018-07-14 | Outpatient (REF) | payer MEDICARE, BC ==
[2018-07-14 09:20] LABS: HEMATOCRIT 39.2 % (36.0-47.0); HEMOGLOBIN 12.9 g/dl (12.0-15.5); MEAN CORPUSCULAR HEMOGLOBIN 31.5 pg (27.0-33.0); MEAN CORPUSCULAR HGB CONC 32.9 g/dl (32.0-36.5); MEAN CORPUSCULAR VOLUME 95.8 fl (80.0-96.0); PLATELET COUNT, AUTOMATED 253 10^3/uL (150-450); RED BLOOD COUNT 4.09 10^6/uL (4.00-5.40); RED CELL DISTRIBUTION WIDTH 13.2 % (11.5-14.5); WHITE BLOOD COUNT 7.1 10^3/uL (4.0-10.0)
[2018-07-18 08:06] LABS: LEVETIRACETAM (KEPPRA) None Detected ug/mL (10.0-40.0)
== END ==
LOC: SKLAB5 08:18
DX: F03.90 Unspecified dementia, unspecified severity, without behavioral disturbance, psychotic disturbance, mood disturbance, and anxiety (principal)
CPT/HCPCS: 36415

== ENCOUNTER → 2018-08-05 | Outpatient (REF) | payer MEDICARE, BC ==
[2018-08-05 14:15] LABS: ANION GAP 8 MEQ/L (8-16); BLOOD UREA NITROGEN 25 MG/DL (7-18); CALCIUM LEVEL 9.2 MG/DL (8.8-10.2); CARBON DIOXIDE LEVEL 28 MEQ/L (21-32); CHLORIDE LEVEL 104 MEQ/L (98-107); CREATININE FOR GFR 0.97 MG/DL (0.55-1.30); GLOMERULAR FILTRATION RATE 58.1 (>32); GLUCOSE, FASTING 155 MG/DL (70-100); POTASSIUM SERUM 4.4 MEQ/L (3.5-5.1); SODIUM LEVEL 140 MEQ/L (136-145)
== END ==
LOC: SKLAB5 08:00
DX: D64.9 Anemia, unspecified (principal)
CPT/HCPCS: 84443

== ENCOUNTER → 2018-08-11 | Outpatient (REF) | payer MEDICARE, BC ==
[2018-08-11 08:19] LABS: HEMOGLOBIN 12.6 g/dl (12.0-15.5); MEAN CORPUSCULAR HEMOGLOBIN 31.5 pg (27.0-33.0); MEAN CORPUSCULAR HGB CONC 33.2 g/dl (32.0-36.5); PLATELET COUNT, AUTOMATED 248 10^3/uL (150-450); RED CELL DISTRIBUTION WIDTH 13.3 % (11.5-14.5); WHITE BLOOD COUNT 7.4 10^3/uL (4.0-10.0)
[2018-08-11 08:46] LABS: ALBUMIN/GLOBULIN RATIO 1.11 (1.00-1.93); ALKALINE PHOSPHATASE 85 U/L (45-117); ALT/SGPT 19 U/L (12-78); ANION GAP 7 MEQ/L (8-16); AST/SGOT 17 U/L (7-37); BILIRUBIN,TOTAL 0.5 MG/DL (0.2-1.0); BLOOD UREA NITROGEN 17 MG/DL (7-18); CALCIUM LEVEL 9.6 MG/DL (8.8-10.2); CARBON DIOXIDE LEVEL 29 MEQ/L (21-32); CHLORIDE LEVEL 102 MEQ/L (98-107); CREATININE FOR GFR 0.95 MG/DL (0.55-1.30); GLOMERULAR FILTRATION RATE 59.5 (>32); GLUCOSE, FASTING 102 MG/DL (70-100); POTASSIUM SERUM 4.2 MEQ/L (3.5-5.1); SODIUM LEVEL 138 MEQ/L (136-145); TOTAL PROTEIN 7.6 GM/DL (6.4-8.2)
== END ==
LOC: SKLAB5 07:46
DX: F03.90 Unspecified dementia, unspecified severity, without behavioral disturbance, psychotic disturbance, mood disturbance, and anxiety (principal); M19.90 Unspecified osteoarthritis, unspecified site
CPT/HCPCS: 80053

== ENCOUNTER → 2018-08-19 | Outpatient (REF) | payer MEDICARE, BC | LOC: M LAB REF 15:21 | DX: R22.1 Localized swelling, mass and lump, neck (principal) | CPT/HCPCS: 88313 ==

== ENCOUNTER → 2018-08-30 | Outpatient (CLI) | payer MEDICARE, BC ==
[~2018-08-30] MED LIST changes: -ALBU17IN INH; -ALPR0.25 PO; -BISO5TAB5; -INDA125TA PO; +ISOVUE-370 76% 100ML VIAL (Q9967) As Ordered; -LASI20TA PO; -LISI-538 PO
== END ==
LOC: M RAD 15:01
DX: R22.1 Localized swelling, mass and lump, neck (principal)
CPT/HCPCS: Q9967

== ENCOUNTER → 2018-10-10 | Outpatient (REF) | payer MEDICARE, BC ==
[~2018-10-10] MED LIST changes: +ACET1TAB55 PO; +ALB2.5NEB INH; +ALBU17IN INH; +ALPR0.25 PO; +Acetaminophen Tab PO; +BISO5TAB5; +DULC10SU2 PR; +ENEMENE16 PR; +INDA125TA PO; -ISOVUE-370 76% 100ML VIAL (Q9967) As Ordered; +KEPP250T5 PO; +LASI20TA PO; +LISI-538 PO; +MILK12002 PO; +QUET1TAB7 PO; +QUET1TAB8 PO; +QUET5TAB PO; +SERO50TA PO; +TRAZ-160 PO; +TYLE325T5 PO; +XANA0.25 PO
--- NOTE | 2018-10-10 10:35 | REP ---
Clinical: None restorable teeth. Note: Examination is somewhat limited due to technical factors. Findings: Uninterrupted left lower third molar. Absent presumed lower bilateral single premolars. Electronically Signed by Jorge Beltran MD 10/10/2018 10:27 A
== END ==
LOC: SKLAB5 09:01
PROVIDERS: ATTEND Family Medicine
DX: K08.9 Disorder of teeth and supporting structures, unspecified (principal)

== ENCOUNTER → 2018-11-01 | Outpatient (REF) | payer MEDICARE, BC ==
[~2018-11-01] MED LIST changes: -ENEMENE16 PR; +ENEMENE4 PR; -LASI20TA PO; +LASI20TA3 PO; +MILK120011 PO; -MILK12002 PO
[2018-11-01 08:59] LABS: ALBUMIN 3.8 GM/DL (3.2-5.2); BLOOD UREA NITROGEN 21 MG/DL (7-18); CALCIUM LEVEL 9.3 MG/DL (8.8-10.2); CARBON DIOXIDE LEVEL 33 MEQ/L (21-32); CHLORIDE LEVEL 98 MEQ/L (98-107); CREATININE FOR GFR 0.83 MG/DL (0.55-1.30); GLOMERULAR FILTRATION RATE > 60.0 (>32); GLUCOSE, FASTING 108 MG/DL (70-100); SODIUM LEVEL 137 MEQ/L (136-145)
== END ==
LOC: SKLAB5 07:39
PROVIDERS: ATTEND Family Medicine
DX: I11.0 Hypertensive heart disease with heart failure (principal)

== ENCOUNTER → 2018-11-09 | Outpatient (REF) | payer MEDICARE, BC ==
[2018-11-09 10:49] LABS: INFLUENZA A AMPLIFICATION NEGATIVE (NEGATIVE); INFLUENZA B AMPLIFICATION NEGATIVE (NEGATIVE)
== END ==
LOC: SKLAB5 12:00
PROVIDERS: ATTEND Family Medicine
DX: J12.1 Respiratory syncytial virus pneumonia (principal); B97.4 Respiratory syncytial virus as the cause of diseases classified elsewhere

== ENCOUNTER → 2018-12-25 | Outpatient (REF) | payer MEDICARE, BC ==
[~2018-12-25] MED LIST changes: +ALBU83IN INH; +ASPI1TAB20 PO; +DIGO0.12 PO; +ENSULIQ64 PO; +KLOR10TA76 PO; +LOPR1TAB6 PO; +MAG400TA PO; +OCUVTAB4 PO; +SENN8.6T7 PO; +SERO1TAB PO
[2018-12-25 14:13] LABS: BASO % 0.4 % (0.0-1.0); EOS % 0.1 % (0.0-3.0); HEMATOCRIT 38.2 % (36.0-47.0); HEMOGLOBIN 13.1 g/dl (12.0-15.5); LYMPH % 9.2 % (24.0-44.0); MEAN CORPUSCULAR HEMOGLOBIN 31.6 pg (27.0-33.0); MEAN CORPUSCULAR HGB CONC 34.3 g/dl (32.0-36.5); MEAN CORPUSCULAR VOLUME 92.3 fl (80.0-96.0); MONO # 1.3 10^3/uL (0.0-0.8); MONO % 11.3 % (0.0-5.0); NEUTROPHILS # 8.9 10^3/uL (1.8-7.7); NEUTROPHILS % 78.4 % (36.0-66.0); PLATELET COUNT, AUTOMATED 248 10^3/uL (150-450); RED BLOOD COUNT 4.14 10^6/uL (4.00-5.40); WHITE BLOOD COUNT 11.3 10^3/uL (4.0-10.0)
[2018-12-25 14:34] LABS: CALCIUM LEVEL 8.7 MG/DL (8.8-10.2); CREATININE FOR GFR 1.1 MG/DL (0.55-1.30); GLOMERULAR FILTRATION RATE 50.3 (>32); POTASSIUM SERUM 3.4 MEQ/L (3.5-5.1); URIC ACID 4.9 MG/DL (2.6-6.0)
== END ==
LOC: SKLAB5 12:51
PROVIDERS: ATTEND Family Medicine
DX: R09.89 Other specified symptoms and signs involving the circulatory and respiratory systems (principal)

== ENCOUNTER 2018-12-26 22:36 | Inpatient (IN) | payer MEDICARE, BC ==
[~2018-12-26] VITALS: Ht 157.5 cm; Wt 47.1 kg
[~2018-12-26 22:36] MED LIST changes: -ALBU83IN INH; -ASPI1TAB20 PO; -DIGO0.12 PO; -ENSULIQ64 PO; -KLOR10TA76 PO; -LOPR1TAB6 PO; -MAG400TA PO; -OCUVTAB4 PO; -SENN8.6T7 PO; -SERO1TAB PO
[2018-12-26] MEDS ORDERED: ALBU83IN INH (23:26)
[2018-12-26] MEDS ORDERED: SERO1TAB PO (23:26)
[2018-12-26] MEDS ORDERED: ENSULIQ64 PO (23:26)
[2018-12-26] MEDS ORDERED: SENN8.6T7 PO (23:26)
[2018-12-26] MEDS ORDERED: OCUVTAB4 PO (23:26)
[2018-12-27] VITALS (8 sets, daily range): BP systolic 89–123; BP diastolic 51–82
[2018-12-27 00:07] LABS: BASO # 0.1 10^3/uL (0.0-0.2); BASO % 0.7 % (0.0-1.0); EOS # 0.2 10^3/uL (0.0-0.50); EOS % 2.3 % (0.0-3.0); HEMATOCRIT 34.6 % (36.0-47.0); HEMOGLOBIN 11.9 g/dl (12.0-15.5); LYMPH # 1.6 10^3/uL (1.5-4.5); LYMPH % 19.6 % (24.0-44.0); MEAN CORPUSCULAR HEMOGLOBIN 30.4 pg (27.0-33.0); MEAN CORPUSCULAR HGB CONC 34.4 g/dl (32.0-36.5); MEAN CORPUSCULAR VOLUME 88.5 fl (80.0-96.0); MONO # 1.1 10^3/uL (0.0-0.8); MONO % 13.2 % (0.0-5.0); NEUTROPHILS # 5.2 10^3/uL (1.8-7.7); NEUTROPHILS % 63.1 % (36.0-66.0); PLATELET COUNT, AUTOMATED 272 10^3/uL (150-450); RED BLOOD COUNT 3.91 10^6/uL (4.00-5.40); WHITE BLOOD COUNT 8.3 10^3/uL (4.0-10.0)
[2018-12-27 00:12] LABS: INR 1.3; PROTHROMBIN TIME 16.4 SECONDS (12.1-14.4)
[2018-12-27 00:13] LABS: PARTIAL THROMBOPLASTIN TIME 36.7 SECONDS (25.4-37.6)
[2018-12-27 00:15] LABS: ERYTHROCYTE SEDIMENTATION RATE 57 mm/hr (0-42)
[2018-12-27 00:34] LABS: ALT/SGPT 16 U/L (12-78); BILIRUBIN,DIRECT 0.1 MG/DL (0.0-0.2); BILIRUBIN,TOTAL 0.3 MG/DL (0.2-1.0); BLOOD UREA NITROGEN 32 MG/DL (7-18); CALCIUM LEVEL 8.4 MG/DL (8.8-10.2); CARBON DIOXIDE LEVEL 33 MEQ/L (21-32); CHLORIDE LEVEL 99 MEQ/L (98-107); CPK CREATINE PHOSPHOKINASE 45 U/L (26-192); CREATININE FOR GFR 0.88 MG/DL (0.55-1.30); GLOMERULAR FILTRATION RATE > 60.0 (>32); GLUCOSE, FASTING 104 MG/DL (70-100); LIPASE 73 U/L (73-393); MB/CK RELATIVE INDEX 3.11 (< OR =4); POTASSIUM SERUM 2.8 MEQ/L (3.5-5.1); SODIUM LEVEL 136 MEQ/L (136-145); TOTAL PROTEIN 6.8 GM/DL (6.4-8.2); TROPONIN I < 0.02 NG/ML (< 0.10)
[2018-12-27 01:32] LABS: NT-PRO BNP 8159 PG/ML (<450)
[2018-12-27 01:39] LABS: MAGNESIUM LEVEL 1.9 MG/DL (1.8-2.4)
[2018-12-27] MEDS ORDERED: KCL 10MEQ/100ML SWI (KRUN) 10 MEQ in APPROPRIATE DILUENT 1 EA IV ONE ×2 (02:00→06:00)
[2018-12-27] MEDS ORDERED: POTASSIUM CHLORIDE 10 MEQ SR TABLET PO ONE ×2 (02:45→06:15)
[2018-12-27] MEDS: METOPROLOL 5 MG/5 ML VIAL IV SCH ×2 (02:50→02:56)
[2018-12-27] MEDS ORDERED: ISOVUE-370 76% 125ML VIAL (Q9967 PER ML) As Ordered ONE (03:27)
--- NOTE | 2018-12-27 05:41 | REPVR ---
EXAM: CT Abdomen and Pelvis With Contrast EXAM DATE/TIME: 12/27/2018 1:32 AM CLINICAL HISTORY: 83 years old, female; Pain; Abdominal pain; Generalized; Additional info: Lower abd distention, dementia TECHNIQUE: Axial computed tomography images of the abdomen and pelvis with intravenous contrast. All CT scans at this facility use at least one of these dose optimization techniques: automated exposure control; mA and/or kV adjustment per patient size (includes targeted exams where dose is matched to clinical indication); or iterative reconstruction. Coronal and sagittal reformatted images were created and reviewed. CONTRAST: Contrast Material: 100 ml of iso; Contrast Route: ac COMPARISON: CT ABD PELVIS W/O FOL BY WIT 05/30/2013 2:48 PM FINDINGS: Lower thorax: Areas of pleuroparenchymal scarring lower lungs. ABDOMEN: Liver: Normal. No mass. Gallbladder and bile ducts: Normal. No calcified stones. No ductal dilation. Pancreas: Normal. No ductal dilation. Spleen: Normal. No splenomegaly. Adrenals: Normal. No mass. Kidneys and ureters: Normal. No hydronephrosis. Stomach and bowel: Diffuse large volume colonic fecal debris with wall thickening of the wall of distal sigmoid colon and low rectum. Appendix: No evidence of appendicitis. PELVIS: Bladder: Prominent bladder distention. Reproductive: Post operative hysterectomy. ABDOMEN and PELVIS: Intraperitoneal space: Normal. No free air. No significant fluid collection. Bones/joints: Degenerative change of the spine. Wedge compression deformity age indeterminate L4 which has occurred since the prior CT in 2012. Lucent areas involve the spinous process of L4 probably benign. Soft tissues: Unremarkable. Vasculature: Normal. No abdominal aortic aneurysm. Lymph nodes: Normal. No enlarged lymph nodes. Other findings: Prominent artifact of the upper abdomen secondary to upper extremity positioning. IMPRESSION: 1. Extensive colonic obstipation. 2. Distal sigmoid colonic and rectal wall thickening or accentuation. 3. Prominent bladder expansion. 4. Development of compression deformity L4 age indeterminate. Electronically signed by: Fabiana Feldman On 12/27/2018 05:41:15 AM
[2018-12-27] MEDS ORDERED: cefTRIAXone SOD 1 GM in D5W MINI-BAG PLUS 50 ML IV SCH (06:00)
[2018-12-27] MEDS ORDERED: NS 1,000 ML IV SCH (06:10)
[2018-12-27] MEDS ORDERED: BISACODYL 10 MG SUPP PR PRN (06:15)
[2018-12-27] MEDS ORDERED: MOM 30ML SUSPENSION UDC PO PRN (06:15)
[2018-12-27] MEDS ORDERED: NS 1,000 ML IV ONE (06:30)
--- NOTE | 2018-12-27 07:18 | HPE ---
DATE OF ADMISSION: 12/27/2018 CHIEF COMPLAINT: Abdominal pain. HISTORY OF PRESENT ILLNESS: The patient is an 83-year-old female from the [facility]. She is a patient of [facility] , Dr. Fraser. She has a significant past medical history of dementia, she is legally blind. Also hypertension, she is not on any medication. She had a subdural hemorrhage back in November of 2017 status post craniotomy. She has had syncope and she has a pacemaker in place. I am unclear if this is secondary to heart block or sick sinus syndrome, the reason is unclear. The patient is unable to provide any history. At this point in time, she denies any symptoms. I am unclear if she is a fall risk. Even though her CHADS-VASc score is elevated at 4, I am reluctant to anticoagulate the patient who had a subdural craniotomy with circumstances surrounding that unclear. She presents to the emergency room. She was noted to be in atrial fibrillation with rapid ventricular response (RVR), mildly hypotensive with electrolyte abnormalities with a potassium of 2.8, a CRP of 14, with a positive urinalysis. CT of the abdomen and pelvis only showed constipation. Again, she is a poor historian due to underlying dementia and she provides very little insight into why she is here. PAST MEDICAL HISTORY: See history of present illness. PAST SURGICAL HISTORY: Obtained from the notes, it appears that she has had a craniotomy for a subdural hematoma back in November 2017 here at [facility]. SOCIAL HISTORY: She resides at the [facility]. Unclear if she has any smoking history. FAMILY HISTORY: Noncontributory. REVIEW OF SYSTEMS: Unable to complete due to underlying mentation. VITAL SIGNS ON ADMISSION: Temperature 97, pulse rate of 77, respirations 16, blood pressure 131/68, satting 100% on room air. PHYSICAL EXAMINATION: GENERAL: She is pleasantly demented in no acute distress. HEAD: Unable to assess with craniotomy scar, but head is normocephalic at this point. LUNGS: Clear to auscultation. CARDIOVASCULAR: Irregularly irregular rhythm. Normal S1 and S2. No murmurs, gallops, or rubs. ABDOMEN: Soft, nontender, nondistended. Positive bowel sounds. No rebound or guarding. EXTREMITIES: No pitting edema or calf tenderness. SKIN: Intact. No rashes, lesions or breakdowns. NEUROLOGICAL EXAM: She appears to have no focal deficits on the exam. LABS AND IMAGING COMPLETED IN THE ER: White count of 8, hemoglobin and hematocrit of 11/34, platelet count 272. Coags within normal limits. Chemistries show a potassium of 2.8, BUN and creatinine of 32/0.88, CRP of 14, BNP of 8000, tropes are negative. Urinalysis shows [address]BCs[address] IMAGING: CT of the abdomen and pelvis shows extensive colonic obstipation. Distal sigmoid colonic and rectal wall thickening. Prominent bladder expansion. X-ray of the chest shows the pacemaker but no acute infiltrates. ASSESSMENT/PLAN: Abdominal pain, possibly secondary to constipation, however it appears in the emergency room that she is having loose stools, so we will send a GI panel and hold her bowel prep. She also appears to have a urinary tract infection. Will treat with ceftriaxone. For new onset atrial fibrillation, again, it is unclear if this is new onset atrial fibrillation. She has a pacemaker in place. The reason is unclear because she has underlying dementia. She is status post IV Lopressor in the emergency room. Heart rate is now in the 120s. Her CHADS-VASc score if 4; however, the patient has a history of subdural hematoma with a craniotomy in 2018 here at [facility]. I am unclear of the circumstances regarding this craniotomy. I am not clear if she is a fall risk. As per the notes, she is legally blind and profoundly demented, so I would refrain on starting anticoagulation on this patient and start on aspirin 81 mg daily, Lopressor 25 mg every 8 hours, the first dose stat with a goal heart rate of 60-110, Cardizem as needed for heart rate greater than 120, 5 mg every 6 hours with holding parameters. Will get an echo, serial tropes, serial EKG. Magnesium within normal limits. Will check a TSH. For underlying dementia, I am not clear what the patient's baseline is. She is not on any medications. History of hypertension. Again, she is not on any medications. Status post pacemaker. The reasons are unclear as the patient is demented. For deep vein thrombosis (DVT) prophylaxis, heparin subcu. Gastrointestinal (GI) prophylaxis not indicated. Diet: Cardiac.
[2018-12-27 07:32] LABS: TROPONIN I < 0.02 NG/ML (< 0.10)
--- NOTE | 2018-12-27 08:07 | REP ---
Acute abdominal series: Three views. History: Abdomen pain. Comparison chest x-ray is from May 25, 2018. Findings: Today's upright chest radiograph shows a bipolar pacemaker in the right heart via the left side. Mild cardiac enlargement is observed. Lungs are hyperinflated. No infiltrate is seen. There is linear fibrosis in the right base unchanged. No free subdiaphragmatic air is seen. Supine and erect views of the abdomen show moderate stool in the transverse and descending segments the colon. Mild gaseous distension of the ascending and transverse colon is seen. Moderate stool is noted in the sigmoid or rectosigmoid colon. No significant air fluid level. Impression: Moderate stool and colonic gas. No obstructive lesion seen. No evidence of free air. Electronically Signed by Federico Walker MD 12/27/2018 07:58 A
--- NOTE | 2018-12-27 08:08 | REP ---
Single view chest x-ray: History: Abdomen pain. Findings: Lateral chest x-ray is compared with the current frontal view. Frontal view was obtained portably. Today's lateral chest x-ray shows no visible infiltrate or pleural effusion. Pacemaker leads are noted. The aorta somewhat tortuous. See Electronically Signed by Federico Walker MD 12/27/2018 07:59 A
[2018-12-27] MEDS: SENOKOT S TAB PO SCH (08:47)
[2018-12-27] MEDS: METOPROLOL TART 25 MG TABLET PO SCH ×2 (08:54→13:53)
--- NOTE | 2018-12-27 08:57 | ECGEPIP ---
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
[2018-12-27] MEDS ORDERED: ASPIRIN 81 MG ENTERIC TAB PO SCH (09:00)
--- NOTE | 2018-12-27 09:09 | REP ---
CT BRAIN WITHOUT CONTRAST: HISTORY: Confusion. Comparison head CT study March 15, 2018. CT FINDINGS: Preliminary digital student life coordinator radiograph demonstrates craniotomy defect in one of the parietal bones. Bone window settings demonstrate that this is right-sided and unchanged from prior study. There is some dural thickening and calcification adjacent to this which is chronic and actually less pronounced than on the March 15, 2018 study. There is diffuse moderate cerebral atrophy. Concordant ventricular enlargement is observed. There is no evidence of intracranial hemorrhage. Vascular calcification is again noted. There is a small quantity of air in the cavernous sinus on the right likely related to an intravenous line. There is mucosal thickening in the right sphenoid and in one of the right posterior ethmoid air cells. This is more prominent than previously. There is no evidence of intracranial hemorrhage or acute infarction. No mass or midline shift is seen. IMPRESSION: Vascular calcification, diffuse moderate atrophy, old right parietal craniotomy with some adjacent dural thickening which has decreased from most recent prior study. No acute intracranial abnormality seen. Electronically Signed by Federico Walker MD 12/27/2018 07:39 P
[2018-12-27] MEDS: QUEtiapine FUMARATE 100 MG TAB PO SCH ×2 (10:13→16:54)
[2018-12-27] MEDS: OCUVITE 1 TAB PO SCH ×2 (10:13→21:09)
[2018-12-27] MEDS: cefTRIAXone SOD 1 GM in D5W MINI-BAG PLUS 50 ML IV SCH (10:13)
--- NOTE | 2018-12-27 11:31 | ECGEPIP ---
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
[2018-12-27] MEDS ORDERED: DIGOXIN INJ 0.5 MG/2 ML AMP (J1160) IV ONE ×2 (12:15→16:00)
[2018-12-27 13:26] LABS: BLOOD UREA NITROGEN 22 MG/DL (7-18); CALCIUM LEVEL 8.3 MG/DL (8.8-10.2); CARBON DIOXIDE LEVEL 25 MEQ/L (21-32); CHLORIDE LEVEL 105 MEQ/L (98-107); GLOMERULAR FILTRATION RATE > 60.0 (>32); GLUCOSE, FASTING 130 MG/DL (70-100); POTASSIUM SERUM 3.8 MEQ/L (3.5-5.1); SODIUM LEVEL 137 MEQ/L (136-145); TROPONIN I < 0.02 NG/ML (< 0.10)
--- NOTE | 2018-12-27 14:11 | IPNPDOC ---
Subjective Date Seen The patient was seen on 12/27/18. Subjective Chief Complaint/HPI The patient is an 83-year-old female from the [facility] who was admitted for atrial fibrillation with RPR. She has a significant past medical history of dementia, hypertension, and a subdural hemorrhage in Nov 2017 s/p craniotomy. She also has a pacemaker. Events since last encounter Patient interview is limited due to dementia. Patient reports that she feels fine and that she is in no pain. She denies any symptoms of a UTI including frequency, dysuria, or suprapubic pain. She denies any fevers. Patient's heart rate remains in the 120s. Patient has stooled several times and stool panel has been ordered. General: Denies: Chills Constitutional: Denies: Fever Genitourinary: Denies: Dysuria, Frequency Objective Physical Examination General Exam: Positive: Alert, Cooperative, No Acute Distress ENT Exam: Positive: Atraumatic, Mucous membr. moist/pink Neck Exam: Positive: JVD Chest Exam: Positive: Clear to auscultation Heart Exam: Positive: Tachycardic, Irregular Rhythm Abdomen Exam: Positive: BS Hypoactive, Soft; Negative: Tenderness, Mass Extremity Exam: Positive: Edema (Mild pitting edema in lower extremities) Psych Exam: Positive: Mood NL; Negative: Oriented x 3 (Oriented to person only) Assessment /Plan Problems (1) Atrial fibrillation with rapid ventricular response Status: Acute Problem Text: 12/27 Patient has a CHADS-VASc score of 4 indicating a 5-7% risk of stroke, but her HASBLED and ATRIA scores are 2 and 7 respectively indicating a 4-6% risk of hemorrhage. Plan to start NOAC if PT finds that she is at low risk for falls; ASA 325 mg daily has been started in the mean time. Rate control is being attempted with po lopressor 50mg Q6H and she has received two doses of digoxin. Hold lopressor for systolic pressure below 90 mmHg. Her pulse remains over 120; currently waiting for medications to take effect. Low blood pressures have prevented use of larger doses of beta alfonso or use calcium channel alfonso. Echo ordered to investigate heart failure as a cause of atrial fibrillation; patient has no prior history of CHF or A-fib. (2) Congestive heart failure Status: Acute Problem Text: 12/27 Possible CHF: Patient was found to have JVD and lower extremity edema upon exam. Her Pro-BNP was elevated at 8159. Echo ordered to investigate CHF as the cause of patient's A-fib. (3) UTI (urinary tract infection) Status: Acute Problem Text: 12/27 Patient's U/A positive for leukocyte esterase and WBCs, though she has no symptoms of UTI. Will continue with Ceftriaxone. (4) Dementia Status: Chronic Problem Text: 12/27 Patient has a history of dementia and has been exhibiting some agitation since admission. Will continue with seroquel BID. Patient currently has a sitter. Plan/VTE VTE Prophylaxis Ordered?: Yes VS, I&O, 24H, Fishbone Vital Signs/I&O Vital Signs Date Time Temp Pulse Resp B/P (MAP) Pulse Ox O2 Delivery O2 Flow Rate FiO2 12/27/18 08:54 124 123/83 12/27/18 08:20 96.8 20 98 12/27/18 07:23 Room Air Laboratory Data 24H LABS Laboratory Tests 2 12/26/18 23:53: Immature Granulocyte % (Auto) 1.1, White Blood Count 8.3, Red Blood Count 3.91L, Hemoglobin 11.9L, Hematocrit 34.6L, Mean Corpuscular Volume 88.5, Mean Corpuscular Hemoglobin 30.4, Mean Corpuscular Hemoglobin Concent 34.4, Red Cell Distribution Width 13.9, Platelet Count 272, Neutrophils (%) (Auto) 63.1, Lymphocytes (%) (Auto) 19.6L, Monocytes (%) (Auto) 13.2H, Eosinophils (%) (Auto) 2.3, Basophils (%) (Auto) 0.7, Neutrophils # (Auto) 5.2, Lymphocytes # (Auto) 1.6, Monocytes # (Auto) 1.1H, Eosinophils # (Auto) 0.2, Basophils # (Auto) 0.1, Nucleated Red Blood Cells % (auto) 0.0, Erythrocyte Sedimentation Rate 57H, Prothrombin Time 16.4H, Prothromb Time International Ratio 1.30, Activated Partial Thromboplast Time 36.7, Anion Gap 4L, Glomerular Filtration Rate > 60.0, Lactic Acid Level 1.2, Calcium Level 8.4L, Magnesium Level 1.9, Aspartate Amino Transf (AST/SGOT) 18, Alanine Aminotransferase (ALT/SGPT) 16, Alkaline Phosphatase 88, Total Bilirubin 0.3, Direct Bilirubin 0.1, Total Creatine Kinase 45, Creatine Kinase MB 1.0, Creatine Kinase MB Relative Index 3.11, Troponin I < 0.02, C-Reactive Protein, Quantitative 14.70H, ON-Sxb-R-Type Natriuretic Peptide 8159H, Total Protein 6.8, Albumin 3.0L, Albumin/Globulin Ratio 0.79L, Lipase 73 12/27/18 02:18: Urine Color YELLOW, Urine Appearance CLEAR, Urine pH 5.0, Urine Specific [place] 1.013, Urine Protein NEGATIVE, Urine Glucose (UA) NEGATIVE, Urine Ketones NEGATIVE, Urine Blood NEGATIVE, Urine Nitrite NEGATIVE, Urine Bilirubin NEGATIVE, Urine Urobilinogen 0.2, Urine Leukocyte Esterase 2+H, Urine WBC (Auto) 14H, Urine RBC (Auto) 2, Urine Hyaline Casts (Auto) 0, Urine Bacteria (Auto) NEGATIVE, Urine Squamous Epithelial Cells 0, Urine Sperm (Auto) 12/27/18 06:46: Troponin I < 0.02, Thyroid Stimulating Hormone (TSH) 1.620 CBC/BMP Laboratory Tests 12/26/18 23:53 Red Blood Count 3.91 L, Mean Corpuscular Volume 88.5, Mean Corpuscular Hemoglobin 30.4, Mean Corpuscular Hemoglobin Concent 34.4, Red Cell Distribution Width 13.9, Neutrophils (%) (Auto) 63.1, Lymphocytes (%) (Auto) 19.6 L, Monocytes (%) (Auto) 13.2 H, Eosinophils (%) (Auto) 2.3, Basophils (%) (Auto) 0.7, Neutrophils # (Auto) 5.2, Lymphocytes # (Auto) 1.6, Monocytes # (Auto) 1.1 H, Eosinophils # (Auto) 0.2, Basophils # (Auto) 0.1 Microbiology Microbiology 12/27/18 Urine Culture, Received Pending DAY,LE BARAHONA Dec 27, 2018 10:01
[2018-12-27] MEDS: METOPROLOL TART 50 MG TAB PO SCH (21:10)
--- NOTE | 2018-12-27 21:25 | ECHO ---
DATE OF PROCEDURE: 12/27/2018 REFERRING PHYSICIAN: Rodrigue Julien DO INDICATION: Abnormal ECG HEIGHT: 157 cm WEIGHT: 47 kg DIMENSIONS: IVS: 0.9 LV: 3.6 LVPW: 1.0 LA: 2.6 Aorta: 3.6 IVC: 1.6 FINDINGS The study is of fair technical quality. The patient is in atrial fibrillation with ventricular rate typically between 90 and 115 beats per minute. Left ventricle is of normal size. I estimate overall mildly reduced left ventricular systolic function with ejection fraction (EF) around 50-55%. Right ventricle does not appear grossly dilated, but was poorly visualized. Both atria appear severely enlarged. Aortic valve is sclerotic. It has three leaflets and mobility of leaflets is preserved. There are also degenerative abnormalities of mitral valve with mitral annular calcifications. Tricuspid valve was poorly visualized but grossly appears normal. Pulmonic valve appears normal. There is an echo artifact apparent in right-sided chambers consistent with pacemaker or ICD lead. Inferior vena cava is not dilated. Aortic root is normal. Aortic arch and abdominal aorta have visible atherosclerosis. Doppler interrogation of aortic valve reveals no significant stenosis and mild insufficiency. There is mild mitral insufficiency. There is likely severe tricuspid insufficiency even though the Doppler imaging of pulmonary waves was not performed. No significant pulmonic insufficiency seen. Evaluation of diastolic function is inconclusive due to underlying irregular heart rate. CONCLUSION 1. Study is of fair technical quality. 2. Normal left ventricle (LV) size with low normal or mildly reduced left ventricular systolic function. 3. Aortic sclerosis but no stenosis and mild insufficiency. 4. Mild mitral insufficiency. 5. Probably severe tricuspid insufficiency. 6. Normal central venous pressure. 7. Probably normal pulmonary artery pressure. 8. Electrodes apparent in right-sided heart chambers. COMMENT Subacute bacterial endocarditis (SBE) prophylaxis is not recommended. 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 It is possible that tricuspid insufficiency is due to presence of pacing electrode. [facility]
[2018-12-28] VITALS (7 sets, daily range): BP systolic 90–118; BP diastolic 48–69
--- NOTE | 2018-12-28 01:00 | ECGEPIP ---
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
[2018-12-28] MEDS: METOPROLOL TART 50 MG TAB PO SCH ×4 (03:39→21:00)
[2018-12-28 05:40] LABS: HEMATOCRIT 33.4 % (36.0-47.0); HEMOGLOBIN 11.3 g/dl (12.0-15.5); MEAN CORPUSCULAR HEMOGLOBIN 30.7 pg (27.0-33.0); MEAN CORPUSCULAR HGB CONC 33.8 g/dl (32.0-36.5); MEAN CORPUSCULAR VOLUME 90.8 fl (80.0-96.0); PLATELET COUNT, AUTOMATED 287 10^3/uL (150-450); RED BLOOD COUNT 3.68 10^6/uL (4.00-5.40); WHITE BLOOD COUNT 8.3 10^3/uL (4.0-10.0)
[2018-12-28 06:26] LABS: BLOOD UREA NITROGEN 12 MG/DL (7-18); CALCIUM LEVEL 8.3 MG/DL (8.8-10.2); CARBON DIOXIDE LEVEL 26 MEQ/L (21-32); CHLORIDE LEVEL 108 MEQ/L (98-107); CREATININE FOR GFR 0.64 MG/DL (0.55-1.30); DIGOXIN LEVEL 1.3 NG/ML (0.5-2.0); GLOMERULAR FILTRATION RATE > 60.0 (>32); GLUCOSE, FASTING 101 MG/DL (70-100); MAGNESIUM LEVEL 1.6 MG/DL (1.8-2.4); POTASSIUM SERUM 3.4 MEQ/L (3.5-5.1); SODIUM LEVEL 140 MEQ/L (136-145)
[2018-12-28] MEDS: OCUVITE 1 TAB PO SCH ×2 (09:00→21:52)
[2018-12-28] MEDS: ASPIRIN 325 MG TAB PO SCH (10:00)
[2018-12-28] MEDS: SENOKOT S TAB PO SCH (10:00)
[2018-12-28] MEDS: cefTRIAXone SOD 1 GM in D5W MINI-BAG PLUS 50 ML IV SCH (10:00)
[2018-12-28] MEDS: QUEtiapine FUMARATE 100 MG TAB PO SCH ×2 (10:01→16:58)
[2018-12-28] MEDS ORDERED: MAGNESIUM OXIDE 400 MG TAB (MAG-OX) PO ONE (11:15)
[2018-12-28] MEDS ORDERED: POTASSIUM CHLORIDE 10 MEQ SR TABLET PO ONE (11:30)
--- NOTE | 2018-12-28 12:17 | IPNPDOC ---
Subjective Date Seen The patient was seen on 12/28/18. Subjective Chief Complaint/HPI Patient confused General: Denies: ROS Unobtainable (D/T dementia ) Objective Physical Examination General Exam: Positive: Alert, Cooperative, No Acute Distress ENT Exam: Positive: Atraumatic, Mucous membr. moist/pink Neck Exam: Positive: JVD Chest Exam: Positive: Clear to auscultation Heart Exam: Positive: Tachycardic, Irregular Rhythm Abdomen Exam: Positive: BS Hypoactive, Soft; Negative: Tenderness, Mass Extremity Exam: Positive: Edema (Mild pitting edema in lower extremities) Psych Exam: Positive: Mood NL; Negative: Oriented x 3 (Oriented to person only) Assessment /Plan Assessment 12/28 -- Patient appears comfortable. Argumentative and borderline combative. Agree with below, we await urine cultures. -- CDT Problems (1) Atrial fibrillation with rapid ventricular response Status: Acute Problem Text: 12/28/18: HR improving, better control, running 96-110 12/27 Patient has a CHADS-VASc score of 4 indicating a 5-7% risk of stroke, but her HASBLED and ATRIA scores are 2 and 7 respectively indicating a 4-6% risk of hemorrhage. Plan to start NOAC if PT finds that she is at low risk for falls; ASA 325 mg daily has been started in the mean time. Rate control is being attempted with po lopressor 50mg Q6H and she has received two doses of digoxin. Hold lopressor for systolic pressure below 90 mmHg. Her pulse remains over 120; currently waiting for medications to take effect. Low blood pressures have prevented use of larger doses of beta alfonso or use calcium channel alfonso. Echo ordered to investigate heart failure as a cause of atrial fibrillation; patient has no prior history of CHF or A-fib. (2) Congestive heart failure Status: Acute Problem Text: 12/28/18: Patient appears well compensated on exam today ECHO: 1. Study is of fair technical quality. 2. Normal left ventricle (LV) size with low normal mildly reduced left ventricular systolic function. 3. Aortic sclerosis but no stenosis and mild insufficiency. 4. Mild mitral insufficiency. 5. Probably severe tricuspid insufficiency. 6. Normal central venous pressure. 7. Probably normal pulmonary artery pressure. 8. Electrodes apparent in right-sided heart chambers. 12/27 Possible CHF: Patient was found to have JVD and lower extremity edema upon exam. Her Pro-BNP was elevated at 8159. Echo ordered to investigate CHF as the cause of patient's A-fib. (3) UTI (urinary tract infection) Status: Acute Problem Text: 12/28/18: Patient asymptomatic. Consulted with pharmacy. There is some concern over the development of early resistance based on review of previous cultures. We will d/c IV abx and change to oral Cefdnir 300 mg po q day. Once urine cultures return we can make further adjustments 12/27 Patient's U/A positive for leukocyte esterase and WBCs, though she has no sympto ms of UTI. Will continue with Ceftriaxone. (4) Dementia Status: Chronic Problem Text: 12/27 Patient has a history of dementia and has been exhibiting some agitation since admission. Will continue with seroquel BID. Patient currently has a sitter. Plan/VTE VTE Prophylaxis Ordered?: Yes VS, I&O, 24H, Fishbone Vital Signs/I&O Vital Signs Date Time Temp Pulse Resp B/P (MAP) Pulse Ox O2 Delivery O2 Flow Rate FiO2 12/28/18 10:01 96 112/64 12/28/18 08:00 99.4 19 97 12/27/18 07:23 Room Air I&O- Last 24 Hours up to 6 AM 12/28/18 06:00 Intake Total 1630 ml Output Total 1050 ml Balance 580 ml Laboratory Data 24H LABS Laboratory Tests 2 12/27/18 12:49: Anion Gap 7L, Glomerular Filtration Rate > 60.0, Blood Urea Nitrogen 22H, Creatinine 0.70, Sodium Level 137, Potassium Level 3.8#, Chloride Level 105, Carbon Dioxide Level 25, Calcium Level 8.3L, Troponin I < 0.02 12/28/18 05:21: Anion Gap 6L, Glomerular Filtration Rate > 60.0, Blood Urea Nitrogen 12, Creatinine 0.64, Sodium Level 140, Potassium Level 3.4L, Chloride Level 108H, Carbon Dioxide Level 26, Calcium Level 8.3L, Nucleated Red Blood Cells % (auto) 0.0, Magnesium Level 1.6L, Digoxin Level 1.3 CBC/BMP Laboratory Tests 12/27/18 12:49 Calcium Level 8.3 L 12/28/18 05:21 Calcium Level 8.3 L, Red Blood Count 3.68 L, Mean Corpuscular Volume 90.8, Mean Corpuscular Hemoglobin 30.7, Mean Corpuscular Hemoglobin Concent 33.8, Red Cell Distribution Width 14.1 Microbiology Microbiology 12/27/18 Gastrointestinal Tract Panel (PCR) - Final, Complete 12/27/18 Urine Culture, Received Pending ISIS ARCHER Dec 28, 2018 11:05 LARA MILES DO Dec 28, 2018 23:01
[2018-12-28] MEDS ORDERED: NS 500 ML IV ONE (20:30)
[2018-12-29 04:00] VITALS: BP 129/79
[2018-12-29] MEDS: METOPROLOL TART 50 MG TAB PO SCH (04:00)
[2018-12-29 05:53] LABS: HEMATOCRIT 36.4 % (36.0-47.0); HEMOGLOBIN 12.1 g/dl (12.0-15.5); MEAN CORPUSCULAR HEMOGLOBIN 30.6 pg (27.0-33.0); MEAN CORPUSCULAR HGB CONC 33.2 g/dl (32.0-36.5); MEAN CORPUSCULAR VOLUME 92.2 fl (80.0-96.0); PLATELET COUNT, AUTOMATED 310 10^3/uL (150-450); RED BLOOD COUNT 3.95 10^6/uL (4.00-5.40); WHITE BLOOD COUNT 8.6 10^3/uL (4.0-10.0)
[2018-12-29 06:10] LABS: BLOOD UREA NITROGEN 11 MG/DL (7-18); CALCIUM LEVEL 8.2 MG/DL (8.8-10.2); CARBON DIOXIDE LEVEL 26 MEQ/L (21-32); CHLORIDE LEVEL 105 MEQ/L (98-107); CREATININE FOR GFR 0.65 MG/DL (0.55-1.30); GLOMERULAR FILTRATION RATE > 60.0 (>32); GLUCOSE, FASTING 80 MG/DL (70-100); MAGNESIUM LEVEL 1.7 MG/DL (1.8-2.4); POTASSIUM SERUM 3.5 MEQ/L (3.5-5.1); SODIUM LEVEL 140 MEQ/L (136-145)
[2018-12-29 08:00] VITALS: BP 101/69
[2018-12-29] MEDS: OCUVITE 1 TAB PO SCH (08:47)
[2018-12-29] MEDS: ASPIRIN 325 MG TAB PO SCH (08:48)
[2018-12-29] MEDS: SENOKOT S TAB PO SCH (08:48)
[2018-12-29 08:49] VITALS: BP 101/69
[2018-12-29] MEDS: QUEtiapine FUMARATE 100 MG TAB PO SCH (08:49)
[2018-12-29] MEDS ORDERED: POTASSIUM CHLORIDE 10 MEQ SR TABLET PO SCH (09:00)
[2018-12-29] MEDS ORDERED: DIGOXIN 0.125 MG TAB PO SCH (09:00)
[2018-12-29] MEDS ORDERED: CEFDINIR 300 MG CAP (OMNICEF) PO ONE (09:00)
[2018-12-29] MEDS ORDERED: METOPROLOL TART 50 MG TAB PO SCH (09:00)
[2018-12-29] MEDS ORDERED: MAGNESIUM OXIDE 400 MG TAB (MAG-OX) PO SCH (09:00)
[2018-12-29] MEDS ORDERED: ASPI1TAB20 PO (10:05)
[2018-12-29] MEDS ORDERED: DIGO0.12 PO (10:05)
[2018-12-29] MEDS ORDERED: KLOR10TA76 PO (10:05)
[2018-12-29] MEDS ORDERED: MAG400TA PO (10:05)
[2018-12-29] MEDS ORDERED: LOPR1TAB6 PO (10:05)
--- NOTE | 2018-12-30 12:10 | DS.PDOC ---
Discharge Summary General Date of Admission Dec 27, 2018 at 06:10 Date of Discharge 12/29/18 Primary Care Physician: Quan Fraser M.D. Attending Physician: Hieu Lanier M.D. Specialist/Consultants Involve: A Discharge Summary PROCEDURES PERFORMED DURING STAY: ECHO ECHO: 1. Study is of fair technical quality. 2. Normal left ventricle (LV) size with low normal mildly reduced left ventricular systolic function. 3. Aortic sclerosis but no stenosis and mild insufficiency. 4. Mild mitral insufficiency. 5. Probably severe tricuspid insufficiency. 6. Normal central venous pressure. 7. Probably normal pulmonary artery pressure. 8. Electrodes apparent in right-sided heart chambers. ADMITTING DIAGNOSES: 1. A-fib 2. UTI 3 Hypokalemia 4. Dementia DISCHARGE DIAGNOSES: 1. Atrial fibrillation with rapid ventricular response 2. Hypokalemia 3. CHF 4. UTI (urinary tract infection) 5. Hypomagnesemia 6. Dementia COMPLICATIONS/CHIEF COMPLAINT: A Fib With Rapid Ventricular Response, Uti. HISTORY OF PRESENT ILLNESS: The patient is an 83-year-old female from the [facility]. She is a patient of [facility] , Dr. Fraser. She presented to the emergency room with some syncope. She was noted to be in atrial fibrillation with rapid ventricular response (RVR). She has a significant past medical history of dementia and was unable to provide any history. She apparently was having some syncope. Her CHADS-VASc score was elevated at 4. However, she had a subdural hemorrhage back in November of 2017 status post craniotomy. Given her history patient was started on ASA vs a DOAC. Patient also presented with a potassium of 2.8, a CRP of 14, a positive urinalysis and was hypotensive. Patient was admitted for further management. HOSPITAL COURSE: 1. Atrial fibrillation with rapid ventricular response: Patient has a CHADS-VASc score of 4 indicating a 5-7% risk of stroke, but her HASBLED and ATRIA scores are 2 and 7 respectively indicating a 4-6% risk of hemorrhage. ASA 325 mg daily was started. Rate control was achieved with low dose Digoxin and Metoprolol 50 mg TID. Patient was discharged on Digoxin 0.125mg q day and Metoprolol 50 mg TID with hold parameters. Digoxin level to be checked on Wednesday 2. Hypokalemia: This was corrected and she was discharged on oral K+ supplements 3. CHF: Patient was found to have JVD and peripheral edema on clinical exam. Pro-BNP was 8159. ECHO was ordered. Patient remained well compensated throughout her stay 4. UTI (urinary tract infection): Patient's U/A positive for leukocyte esterase and WBCs. She was treated for UTI and was started on Certriaxone IV. There was some concern over the possibility of early resistance based on review/results of previous urine cultures. IV abx was changed to oral Cefdnir 300 mg po q day for a total of 3 days. Urine culture returned PSEUDOMONAS PUTIDA 5. Hypomagnesemia: She was started on oral magnesium oxide 400 mg po q day. 6. Dementia: Patient with a history of dementia and had been exhibiting some agitation. She had a sitter with her DISCHARGE MEDICATIONS: Please see below. ALLERGIES: Please see below. PHYSICAL EXAMINATION ON DISCHARGE: VITAL SIGNS: Please see below. GENERAL: Alert, confused to person, place and time HEENT:unremarkable NECK: no lymphadenopathy CARDIOVASCULAR EXAMINATION:Regular rate, irregular rhythm RESPIRATORY EXAMINATION: CTA ABDOMINAL EXAMINATION: soft, non-tender, non-distended EXTREMITIES: no edema SKIN: warm, dry, good turgor NEUROLOGICAL EXAMINATION: confused LABORATORY DATA: Please see below. IMAGING: Chest X-ray 12/26/18: Findings: Lateral chest x-ray is compared with the current frontal view. Frontal view was obtained portably. Today's lateral chest x-ray shows no visible infiltrate or pleural effusion. Pacemaker leads are noted. The aorta somewhat tortuous. See Abdomen x-ray 12/26/18: Moderate stool and colonic gas. No obstructive lesion seen. No evidence of free air. Abdomen/Pelvis CT scan 12/26/18: IMPRESSION: 1. Extensive colonic obstipation. 2. Distal sigmoid colonic and rectal wall thickening or accentuation. 3. Prominent bladder expansion. 4. Development of compression deformity L4 age indeterminate. Head CT 12/27/18: IMPRESSION: Vascular calcification, diffuse moderate atrophy, old right parietal craniotomy with some adjacent dural thickening which has decreased from most recent prior study. No acute intracranial abnormality seen. PROGNOSIS: Fair ACTIVITY: As tolerated DIET: Low Na+ diet DISCHARGE PLAN: D/C to long term DISCHARGE INSTRUCTIONS: 1. F/U with PCP upon return to [facility] 2. Dig level, renal panel and mag level need to be collected on Wednesday DISCHARGE CONDITION: Stable Vital Signs/I&Os Vital Signs Date Time Temp Pulse Resp B/P (MAP) Pulse Ox O2 Delivery O2 Flow Rate FiO2 12/29/18 08:49 116 101/69 12/29/18 08:00 99.8 16 94 12/27/18 07:23 Room Air I&O- Last 24 Hours up to 6 AM 12/29/18 05:59 Intake Total 360 ml Output Total 400 ml Balance -40 ml Laboratory Data Labs 24H Laboratory Tests 2 12/29/18 05:30: Nucleated Red Blood Cells % (auto) 0.0, Anion Gap 9, Glomerular Filtration Rate > 60.0, Blood Urea Nitrogen 11, Creatinine 0.65, Sodium Level 140, Potassium Level 3.5, Chloride Level 105, Carbon Dioxide Level 26, Calcium Level 8.2L, Magnesium Level 1.7L CBC/BMP Laboratory Tests 12/29/18 05:30 Red Blood Count 3.95 L, Mean Corpuscular Volume 92.2, Mean Corpuscular Hemoglobin 30.6, Mean Corpuscular Hemoglobin Concent 33.2, Red Cell Distribution Width 13.9, Calcium Level 8.2 L Microbiology Microbiology 12/27/18 Gastrointestinal Tract Panel (PCR) - Final, Complete 12/27/18 Urine Culture - Final, Complete Pseudomonas Putida Discharge Medications Scheduled (Ensure Enlive) 1 Liq Liq, 240 ML PO BID, (Reported) (Digoxin) 125 Mcg Tab, 0.125 MG PO DAILY Aspirin (Aspirin) 325 Mg Tab, 325 MG PO DAILY Docusate Sod/Senna (Senna S 8.6-50 mg) 1 Tab Tab, 2 TAB PO DAILY, (Reported) Magnesium Oxide (Magnesium Oxide) 400 Mg Tab, 400 MG PO DAILY Metoprolol Tartrate (Lopressor) 50 Mg Tab, 50 MG PO TID Multivitamin Areds (Preservision Areds) 1 Tab Tab, 2 TAB PO BID, (Reported) Potassium Chloride (Klor-Con M10) 10 Meq Tabcr, 20 MEQ PO DAILY Quetiapine Fumerate (Seroquel) 100 Mg Tab, 100 MG PO BID, (Reported) 0800, 1600; CRUSH SEROQUEL DOSES Scheduled PRN Albuterol Sulfate (Albuterol Sulfate) 2.5 Mg/3 Ml Nebu, 2.5 MG INH Q2H PRN for WHEEZING, (Reported) Bisacodyl (Dulcolax) 10 Mg Sup, 10 MG DC DAILY PRN for CONSTIPATION, (Reported) Milk Of Magnesia (Milk of Magnesia) 1,200 Mg/15 Ml Kary, 30 ML PO DAILY PRN for CONSTIPATION, (Reported) Sodium Phosphate/Biphosphate (Enema 7-19 gm/118Ml) 1 Uvaldo Uvaldo, 1 UVALDO DC DAILY PRN for CONSTIPATION, (Reported) Allergies Coded Allergies: Prednisone (Verified Allergy, Severe, ANAPHYLAXIS, 12/03/17) Quinolones (Verified Allergy, Mild, CIPRO - RASH; LEVAQUIN - HOT HAND AT IV SITE, 11/30/17) 11/23/08 - CIPRO - RASH 10/23/10 - LEVAQUIN - HOT HAND AT IV SITE; DR. FROST Pseudoephedrine (Verified Allergy, Unknown, 11/30/17) Morphine (Verified Adverse Reaction, Mild, behavorial issues, 11/30/17) ISIS ARCHER Dec 29, 2018 10:07
== END 2018-12-29 11:48 | DRG 309 ==
LOC: M ED 22:36 → M PCU 12-27 06:10 → M ED INP 12-27 06:10 → M PCU 12-27 08:11
PROVIDERS: ADMIT Internal Medicine; ATTEND Family Medicine
DX: I48.91 Unspecified atrial fibrillation (principal); N39.0 Urinary tract infection, site not specified; F03.91 Unspecified dementia, unspecified severity, with behavioral disturbance; K59.00 Constipation, unspecified; E83.42 Hypomagnesemia; H54.8 Legal blindness, as defined in USA; I11.0 Hypertensive heart disease with heart failure; I08.3 Combined rheumatic disorders of mitral, aortic and tricuspid valves; E87.6 Hypokalemia; I50.9 Heart failure, unspecified; Z95.0 Presence of cardiac pacemaker; B96.5 Pseudomonas (aeruginosa) (mallei) (pseudomallei) as the cause of diseases classified elsewhere

== ENCOUNTER → 2018-12-31 | Outpatient (REF) | payer MEDICARE, BC ==
[~2018-12-31] MED LIST changes: +ALBU83IN INH; +ASPI1TAB20 PO; +DIGO0.12 PO; +ENSULIQ64 PO; +KLOR10TA76 PO; +LOPR1TAB6 PO; +MAG400TA PO; +OCUVTAB4 PO; +SENN8.6T7 PO; +SERO1TAB PO
[2019-01-01 08:10] LABS: BASO # 0.1 10^3/uL (0.0-0.2); BASO % 0.5 % (0.0-1.0); EOS % 0.3 % (0.0-3.0); HEMATOCRIT 41.1 % (36.0-47.0); HEMOGLOBIN 13.4 g/dl (12.0-15.5); LYMPH # 1.2 10^3/uL (1.5-4.5); MEAN CORPUSCULAR HEMOGLOBIN 30.5 pg (27.0-33.0); MEAN CORPUSCULAR HGB CONC 32.6 g/dl (32.0-36.5); MEAN CORPUSCULAR VOLUME 93.6 fl (80.0-96.0); MONO # 0.9 10^3/uL (0.0-0.8); MONO % 7.3 % (0.0-5.0); NEUTROPHILS % 80.5 % (36.0-66.0); PLATELET COUNT, AUTOMATED 327 10^3/uL (150-450); RED BLOOD COUNT 4.39 10^6/uL (4.00-5.40); WHITE BLOOD COUNT 12.4 10^3/uL (4.0-10.0)
[2019-01-01 08:51] LABS: CALCIUM LEVEL 8.9 MG/DL (8.8-10.2); CREATININE FOR GFR 1.05 MG/DL (0.55-1.30); POTASSIUM SERUM 4.1 MEQ/L (3.5-5.1)
== END ==
LOC: SKLAB5 13:47
PROVIDERS: ATTEND Family Medicine
DX: R53.83 Other fatigue (principal)

== ENCOUNTER → 2019-01-05 | Outpatient (REF) | payer MEDICARE, BC ==
[2019-01-05 09:29] LABS: BLOOD UREA NITROGEN 19 MG/DL (7-18); CALCIUM LEVEL 8.8 MG/DL (8.8-10.2); CARBON DIOXIDE LEVEL 21 MEQ/L (21-32); CHLORIDE LEVEL 109 MEQ/L (98-107); CREATININE FOR GFR 0.79 MG/DL (0.55-1.30); DIGOXIN LEVEL 0.5 NG/ML (0.5-2.0); GLOMERULAR FILTRATION RATE > 60.0 (>32); GLUCOSE, FASTING 84 MG/DL (70-100); MAGNESIUM LEVEL 1.8 MG/DL (1.8-2.4); PHOSPHORUS LEVEL 2.9 MG/DL (2.5-4.9); POTASSIUM SERUM 4.9 MEQ/L (3.5-5.1); SODIUM LEVEL 140 MEQ/L (136-145)
== END ==
LOC: SKLAB5 08:23
PROVIDERS: ATTEND Family Medicine
DX: I10 Essential (primary) hypertension (principal); I48.91 Unspecified atrial fibrillation

== ENCOUNTER → 2019-01-12 | Outpatient (REF) | payer MEDICARE, BC ==
--- NOTE | 2019-01-12 15:18 | REP ---
Clinical: Lower back pain with recent trauma/fall. Technique: AP, lateral, bilateral oblique and coned-down views of the lumbosacral spine. Comparison: 03/16/2018 Findings: Age-related osteopenia and moderate to advanced multilevel degenerative changes are again appreciated. Findings include endplate sclerosis, osteophytosis, and disc space narrowing as well as grade 1 retrolisthesis at the L2-3 of approximately 5.5 mm and chronic compression deformity of L4 with approximately 35% loss of vertebral body height. No acute fracture / compression injury appreciated. Impression: 1. Osteopenia and advanced multilevel degenerative changes including grade 1 retrolisthesis at the L2-3 level and chronic compression deformity at L4. 2. No acute fracture / compression injury or subluxation appreciated. Electronically Signed by Jorge Beltran MD 01/12/2019 03:10 P
== END ==
LOC: SKLAB5 14:37
PROVIDERS: ATTEND Family Medicine
DX: M54.5 Low back pain (principal); M85.80 Other specified disorders of bone density and structure, unspecified site

== ENCOUNTER → 2019-01-16 | Outpatient (REF) | payer MEDICARE, BC ==
[~2019-01-16] MED LIST changes: +SENN1TAB41 PO; -SENN8.6T7 PO
--- NOTE | 2019-01-16 16:48 | ECGEPIP ---
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 Electronically Signed On 01-16-2019 16:47:46 EDT by Young Oconnell
== END ==
LOC: SKLAB5 12:23
PROVIDERS: ATTEND Family Medicine
DX: I48.91 Unspecified atrial fibrillation (principal); Z91.81 History of falling

== ENCOUNTER → 2019-02-01 | Outpatient (REF) | payer MEDICARE, BC | LOC: SKLAB5 06:39 | PROVIDERS: ATTEND Family Medicine | DX: Z13.89 Encounter for screening for other disorder (principal) ==

== ENCOUNTER → 2019-02-01 | Outpatient (REF) | payer MEDICARE, BC ==
[2019-02-01 05:09] LABS: APPEARANCE, URINE CLEAR (CLEAR); BACTERIA, URINE AUTO NEGATIVE (NEGATIVE); BILIRUBIN, URINE AUTO NEGATIVE (NEGATIVE); BLOOD, URINE BLOOD NEGATIVE (NEGATIVE); COLOR, URINE STRAW (YELLOW); GLUCOSE, URINE (UA) AUTO NEGATIVE (NEGATIVE); KETONE, URINE AUTO NEGATIVE (NEGATIVE); LEUKOCYTE ESTERASE, URINE AUTO NEGATIVE (NEGATIVE); MUCUS, URINE SMALL (NEGATIVE); NITRITE, URINE AUTO NEGATIVE (NEGATIVE); PROTEIN, URINE AUTO NEGATIVE (NEGATIVE); RBC, URINE AUTO 1 /HPF (0-3); SPECIFIC GRAVITY URINE AUTO 1.009 (1.002-1.035); SQUAMOUS EPITHELIAL CELL UR AU 0 /HPF (0-6); UROBILINOGEN, URINE AUTO 0.2 mg/dL (0.0-2.0); WBC, URINE AUTO 0 /HPF (0-3)
== END ==
LOC: SKLAB5 03:00
PROVIDERS: ATTEND Family Medicine
DX: E79.0 Hyperuricemia without signs of inflammatory arthritis and tophaceous disease (principal)

== ENCOUNTER → 2019-02-09 | Outpatient (REF) | payer MEDICARE, BC ==
[2019-02-09 07:53] LABS: HEMATOCRIT 32.2 % (36.0-47.0); HEMOGLOBIN 10.4 g/dl (12.0-15.5); MEAN CORPUSCULAR HEMOGLOBIN 30.6 pg (27.0-33.0); MEAN CORPUSCULAR HGB CONC 32.3 g/dl (32.0-36.5); MEAN CORPUSCULAR VOLUME 94.7 fl (80.0-96.0); PLATELET COUNT, AUTOMATED 299 10^3/uL (150-450)
[2019-02-09 08:17] LABS: ALBUMIN 2.9 GM/DL (3.2-5.2); ALT/SGPT 12 U/L (12-78); BILIRUBIN,TOTAL 0.3 MG/DL (0.2-1.0); BLOOD UREA NITROGEN 28 MG/DL (7-18); CALCIUM LEVEL 8.4 MG/DL (8.8-10.2); CARBON DIOXIDE LEVEL 31 MEQ/L (21-32); CHLORIDE LEVEL 104 MEQ/L (98-107); CREATININE FOR GFR 0.92 MG/DL (0.55-1.30); GLOMERULAR FILTRATION RATE > 60.0 (>32); GLUCOSE, FASTING 71 MG/DL (70-100); POTASSIUM SERUM 4.6 MEQ/L (3.5-5.1); SODIUM LEVEL 138 MEQ/L (136-145); TOTAL PROTEIN 6.8 GM/DL (6.4-8.2)
== END ==
LOC: SKLAB5 08:25
PROVIDERS: ATTEND Family Medicine
DX: F03.91 Unspecified dementia, unspecified severity, with behavioral disturbance (principal); I48.91 Unspecified atrial fibrillation; R53.83 Other fatigue

== ENCOUNTER → 2019-03-15 | Outpatient (REF) | payer MEDICARE, BC ==
[~2019-03-15] MED LIST changes: +CELE10TA PO; +METO1TAB7 PO; +QC A650T3 PO; -TRAZ-160 PO; +TRAZ-252 PO
[2019-03-15 12:51] LABS: BLOOD UREA NITROGEN 23 MG/DL (7-18); CALCIUM LEVEL 8.9 MG/DL (8.8-10.2); CARBON DIOXIDE LEVEL 32 MEQ/L (21-32); CHLORIDE LEVEL 98 MEQ/L (98-107); CREATININE FOR GFR 0.81 MG/DL (0.55-1.30); GLOMERULAR FILTRATION RATE > 60.0 (>32); GLUCOSE, FASTING 109 MG/DL (70-100); POTASSIUM SERUM 4.7 MEQ/L (3.5-5.1); SODIUM LEVEL 134 MEQ/L (136-145)
--- NOTE | 2019-03-15 19:58 | ECGEPIP ---
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 Faster sinus rate with suppression of atrial pacing from 01/26/19. Electronically Signed on 03-15-2019 19:57:59 EDT by Young Oconnell
== END ==
LOC: SKLAB5 11:53
PROVIDERS: ATTEND Family Medicine
DX: R94.31 Abnormal electrocardiogram [ECG] [EKG] (principal); Z91.81 History of falling

== ENCOUNTER → 2019-03-17 | Outpatient (REF) | payer MEDICARE, BC | LOC: SKLAB5 02:36 | PROVIDERS: ATTEND Family Medicine | DX: I48.91 Unspecified atrial fibrillation (principal); I50.9 Heart failure, unspecified; N39.0 Urinary tract infection, site not specified ==

== ENCOUNTER 2019-04-15 21:59 | Emergency (ER) | payer MEDICARE, BC ==
[~2019-04-15] VITALS: Ht 157.5 cm; Wt 53.6 kg
[~2019-04-15 21:59] MED LIST changes: +ASPI-524 PO; -ASPI1TAB20 PO
[2019-04-15 22:52] LABS: BASO # 0.1 10^3/uL (0.0-0.2); BASO % 1.1 % (0.0-1.0); EOS # 0.4 10^3/uL (0.0-0.50); EOS % 5.9 % (0.0-3.0); HEMATOCRIT 31.6 % (36.0-47.0); HEMOGLOBIN 10.3 g/dl (12.0-15.5); LYMPH # 1.2 10^3/uL (1.5-4.5); LYMPH % 18.2 % (24.0-44.0); MEAN CORPUSCULAR HEMOGLOBIN 31.8 pg (27.0-33.0); MEAN CORPUSCULAR HGB CONC 32.6 g/dl (32.0-36.5); MEAN CORPUSCULAR VOLUME 97.5 fl (80.0-96.0); MONO # 0.9 10^3/uL (0.0-0.8); MONO % 13.9 % (0.0-5.0); NEUTROPHILS % 60.3 % (36.0-66.0); PLATELET COUNT, AUTOMATED 309 10^3/uL (150-450); RED BLOOD COUNT 3.24 10^6/uL (4.00-5.40); WHITE BLOOD COUNT 6.6 10^3/uL (4.0-10.0)
[2019-04-15 23:15] LABS: ALT/SGPT 14 U/L (12-78); BILIRUBIN,DIRECT 0.1 MG/DL (0.0-0.2); BILIRUBIN,TOTAL 0.3 MG/DL (0.2-1.0); BLOOD UREA NITROGEN 30 MG/DL (7-18); CALCIUM LEVEL 8.3 MG/DL (8.8-10.2); CARBON DIOXIDE LEVEL 29 MEQ/L (21-32); CHLORIDE LEVEL 102 MEQ/L (98-107); CREATININE FOR GFR 0.87 MG/DL (0.55-1.30); GLOMERULAR FILTRATION RATE > 60.0 (>32); GLUCOSE, FASTING 104 MG/DL (70-100); LIPASE 119 U/L (73-393); POTASSIUM SERUM 4.6 MEQ/L (3.5-5.1); SODIUM LEVEL 139 MEQ/L (136-145); TOTAL PROTEIN 6.8 GM/DL (6.4-8.2)
--- NOTE | 2019-04-15 23:22 | REPVR ---
EXAM: CT Abdomen and Pelvis Without Contrast EXAM DATE/TIME: 04/15/2019 10:37 PM CLINICAL HISTORY: 83 years old, female; Abdominal pain; Generalized TECHNIQUE: Imaging protocol: Axial computed tomography images of the abdomen and pelvis without contrast. Coronal and sagittal reformatted images were created and reviewed. Radiation optimization: All CT scans at this facility use at least one of these dose optimization techniques: automated exposure control; mA and/or kV adjustment per patient size (includes targeted exams where dose is matched to clinical indication); or iterative reconstruction. COMPARISON: CT ABD/PEL W/IV CONTRAST ONLY 12/27/2018 3:26 AM FINDINGS: Lungs: There is some scarring and atelectasis at the right lung base. Liver: Normal appearing liver. Gallbladder and bile ducts: The gallbladder is difficult to identify but probably partially contracted. Pancreas: The pancreas cannot be adequately evaluated with out IV and oral contrast. Spleen: Small spleen. Adrenals: Normal adrenal glands. Kidneys and ureters: Normal appearing kidneys with no evidence of hydronephrosis. Stomach and bowel: The cecum is in the right pelvis and there is no evidence of inflammation in the region of the cecum. The gallbladder is thought to be partially contracted. There is a large amount of secretions in the right colon. There is very severe constipation. Secretions are noted within the stomach. If there is concern of obstruction I would suggest oral contrast to be followed through the bowel. In the region of the body of the pancreas there are multiple nonopacified small bowel. Oral contrast would be necessary to differentiate small bowel from pancreas or even mass. Appendix: The appendix cannot be identified without oral contrast. Intraperitoneal space: There is no evidence of pneumoperitoneum. There is no evidence of free fluid in the abdomen or the pelvis. Vasculature: Calcification is noted along the aorta consistent with moderate atherosclerotic change. Lymph nodes: There is no evidence of there is no evidence of lymphadenopathy. Bladder: There is mild distention of the urinary bladder. There is a bladder diverticulum on the left. Reproductive: Patient is status post hysterectomy. Bones/joints: There is moderate compression of L4 and unchanged from the previous examination of December. There is a severe wedge-shaped compression deformity of T12 with loss of two thirds of vertebral height which has occurred since 12/27/2018 exam. The vertebra is diffusely sclerotic. There is evidence of fracturing of the endplates especially the superior endplate. This compression deformity may be secondary to osteoporosis. Pathologic vertebra could not be excluded including multiple myeloma or metastasis. Correlation with a whole body bone scan should be considered. IMPRESSION: Very severe constipation. Large amount of secretions in the right colon and if there is any concern of developing bowel obstruction suggest repeating the CT after oral contrast. The pancreas loops of small bowel in the region of the body of the pancreas cannot be evaluated and suggest CT with oral and IV contrast. Severe compression deformity of T12 has occurred since December of fracturing of the superior endplate. There is diffuse sclerosis and this may be secondary to osteoporosis or pathologic vertebra suggest whole-body bone scan for clarification. Electronically signed by: Sherman Walsh On 04/15/2019 23:21:43 PM
[2019-04-16 00:12] VITALS: BP 109/68
--- NOTE | 2019-04-17 13:06 | ED PDOC ---
Post-Departure Follow-Up dr munguia faxed formal report of ct abd/p for fu Paresh Ríos MD Apr 17, 2019 13:06
== END 2019-04-16 00:15 | disposition home or self-care (01) ==
LOC: M ED 21:59
DX: K59.00 Constipation, unspecified (principal); I48.91 Unspecified atrial fibrillation; F03.90 Unspecified dementia, unspecified severity, without behavioral disturbance, psychotic disturbance, mood disturbance, and anxiety; Z95.0 Presence of cardiac pacemaker; Z79.899 Other long term (current) drug therapy; Z79.82 Long term (current) use of aspirin; Z88.1 Allergy status to other antibiotic agents; Z88.5 Allergy status to narcotic agent; Z88.8 Allergy status to other drugs, medicaments and biological substances

== ENCOUNTER → 2019-04-18 | Outpatient (REF) | payer MEDICARE, BC ==
[~2019-04-18] MED LIST changes: -ASPI-524 PO; +ASPI1TAB20 PO
== END ==
LOC: SKLAB8 08:20 → SKLAB5 08:20
PROVIDERS: ATTEND Family Medicine
DX: E55.9 Vitamin D deficiency, unspecified (principal)

== ENCOUNTER → 2019-05-09 | Outpatient (REF) | payer MEDICARE, BC ==
[~2019-05-09] MED LIST changes: +ASPI-524 PO; -ASPI1TAB20 PO
[2019-05-09 07:42] LABS: BLOOD UREA NITROGEN 30 MG/DL (7-18); CALCIUM LEVEL 9.5 MG/DL (8.8-10.2); CARBON DIOXIDE LEVEL 31 MEQ/L (21-32); CHLORIDE LEVEL 101 MEQ/L (98-107); CREATININE FOR GFR 0.85 MG/DL (0.55-1.30); GLOMERULAR FILTRATION RATE > 60.0 (>32); GLUCOSE, FASTING 99 MG/DL (70-100); POTASSIUM SERUM 4.3 MEQ/L (3.5-5.1); SODIUM LEVEL 137 MEQ/L (136-145)
== END ==
LOC: SKLAB8 07:00
PROVIDERS: ATTEND Family Medicine
DX: I10 Essential (primary) hypertension (principal); R29.6 Repeated falls; R60.9 Edema, unspecified

== ENCOUNTER → 2019-08-01 | Outpatient (REF) | payer MEDICARE, BC ==
[~2019-08-01] MED LIST changes: -ASPI-524 PO; +ASPI325T57 PO; -BISO5TAB5; +BISO5TAB9
[2019-08-01 16:09] LABS: BASO # 0.1 10^3/uL (0.0-0.2); BASO % 0.9 % (0.0-1.0); EOS # 0.5 10^3/uL (0.0-0.5); EOS % 6.5 % (0.0-3.0); HEMATOCRIT 34.8 % (36.0-47.0); HEMOGLOBIN 11.4 g/dl (12.0-15.5); LYMPH # 1.2 10^3/uL (1.5-5.0); LYMPH % 17.7 % (24.0-44.0); MEAN CORPUSCULAR HEMOGLOBIN 31.9 pg (27.0-33.0); MEAN CORPUSCULAR HGB CONC 32.8 g/dl (32.0-36.5); MEAN CORPUSCULAR VOLUME 97.5 fl (80.0-96.0); MONO # 0.8 10^3/uL (0.0-0.8); MONO % 12.1 % (0.0-5.0); NEUTROPHILS # 4.4 10^3/uL (1.5-8.5); NEUTROPHILS % 62.4 % (36.0-66.0); PLATELET COUNT, AUTOMATED 265 10^3/uL (150-450); RED BLOOD COUNT 3.57 10^6/uL (4.00-5.40)
[2019-08-01 16:45] LABS: BLOOD UREA NITROGEN 34 MG/DL (7-18); CALCIUM LEVEL 9.2 MG/DL (8.8-10.2); CARBON DIOXIDE LEVEL 29 MEQ/L (21-32); CHLORIDE LEVEL 106 MEQ/L (98-107); CREATININE FOR GFR 0.83 MG/DL (0.55-1.30); GLOMERULAR FILTRATION RATE > 60.0 (>32); GLUCOSE, FASTING 96 MG/DL (70-100); POTASSIUM SERUM 4.9 MEQ/L (3.5-5.1); SODIUM LEVEL 140 MEQ/L (136-145); VALPROIC ACID (DEPAKOTE) 20.3 UG/ML (50.0-100.0)
== END ==
LOC: SKLAB8 08:00
PROVIDERS: ATTEND Family Medicine
DX: Z79.899 Other long term (current) drug therapy (principal)

== ENCOUNTER 2019-09-01 10:45 | Emergency (ER) | payer MEDICARE, BC ==
[~2019-09-01] VITALS: Ht 154.9 cm; Wt 51.0 kg
[2019-09-01] MEDS ORDERED: QUET5TAB PO (11:11)
[2019-09-01] MEDS ORDERED: TUMS500C PO (11:16)
[2019-09-01] MEDS ORDERED: METO1TAB33 PO (11:16)
[2019-09-01] MEDS ORDERED: MOM30SS2 PO (11:24)
[2019-09-01] MEDS ORDERED: MAGN400T3 PO (11:24)
[2019-09-01] MEDS ORDERED: ACET-908 PO (11:24)
[2019-09-01] MEDS ORDERED: DEPA1TAB PO (11:24)
[2019-09-01] MEDS ORDERED: DIGO0.12 PO (11:24)
[2019-09-01] MEDS ORDERED: ACET65SU PR (11:24)
[2019-09-01] MEDS ORDERED: ENSU1LIQ36 PO (11:24)
[2019-09-01] MEDS ORDERED: POTA1TAB14 PO (11:24)
[2019-09-01] MEDS ORDERED: ASPI-525 PO (11:24)
[2019-09-01] MEDS ORDERED: LIDOCAINE 2% MDV 20 ML VIAL SC ONE (12:15)
[2019-09-01] MEDS ORDERED: MORPHINE 4 MG/ML 1ML VIAL/SYRINGE (J2270) IM ONE (12:15)
[2019-09-01] MEDS ORDERED: diphenhydrAMINE INJ 50MG/ML VIAL (J1200) IM STA (12:22)
[2019-09-01] MEDS ORDERED: MORPHINE 2 MG/ML 1ML VIAL (J2270) IV STA (12:22)
--- NOTE | 2019-09-01 13:03 | REP ---
Left forearm: Two views. History: Trauma. Findings: There is soft tissue irregularity and a soft tissue deficit over the proximal ulna. There is diffuse osteopenia. No fracture or opaque foreign body seen. Impression: Findings consistent with soft tissue laceration. No fracture or opaque foreign body seen. Electronically Signed by Federico Walker MD 09/01/2019 02:12 P
--- NOTE | 2019-09-01 13:03 | REP ---
Left elbow series: Four views. History: Trauma. Findings: Four views of the left elbow demonstrate diffuse osteopenia. There is soft tissue irregularity over the olecranon. No fracture or opaque foreign body is seen. No evidence of joint effusion. Impression: Soft-tissue irregularity. No fracture seen. Electronically Signed by Federico Walker MD 09/01/2019 02:12 P
[2019-09-01 14:48] VITALS: BP 122/66
== END 2019-09-01 14:59 | disposition home or self-care (01) ==
LOC: M ED 10:45
DX: S51.012A Laceration without foreign body of left elbow, initial encounter (principal); Y99.9 Unspecified external cause status; Y92.129 Unspecified place in nursing home as the place of occurrence of the external cause; F03.90 Unspecified dementia, unspecified severity, without behavioral disturbance, psychotic disturbance, mood disturbance, and anxiety; I10 Essential (primary) hypertension; I48.92 Unspecified atrial flutter; I73.9 Peripheral vascular disease, unspecified; I95.1 Orthostatic hypotension; R60.9 Edema, unspecified; Z85.51 Personal history of malignant neoplasm of bladder; Z95.0 Presence of cardiac pacemaker; Z88.1 Allergy status to other antibiotic agents; Z88.8 Allergy status to other drugs, medicaments and biological substances; Z79.82 Long term (current) use of aspirin; Z79.899 Other long term (current) drug therapy
CPT/HCPCS: 12035; 73080; 73090; 96372; 96374; 99283; J1200; J2270

== ENCOUNTER → 2019-11-21 | Outpatient (REF) | payer MEDICARE, BC ==
[~2019-11-21] MED LIST changes: +ACET-908 PO; +ACET65SU PR; +ASPI-525 PO; +BISO5TAB14; -BISO5TAB9; +DEPA1TAB PO; -DIGO0.12 PO; +DIGO0.123 PO; +ENSU1LIQ36 PO; +MAGN400T3 PO; +METO1TAB33 PO; +MOM30SS2 PO; +POTA1TAB14 PO; +QUET100T2 PO; -QUET1TAB8 PO; +TUMS500C PO
[2019-11-21 17:59] LABS: INFLUENZA A AMPLIFICATION NEGATIVE (NEGATIVE); INFLUENZA B AMPLIFICATION NEGATIVE (NEGATIVE)
== END ==
LOC: SKLAB8 16:54
PROVIDERS: ATTEND Family Medicine
DX: R05 Cough (principal)

== ENCOUNTER 2019-12-20 10:44 | Inpatient (IN) | payer MEDICARE, BC ==
[~2019-12-20] VITALS: Ht 172.7 cm; Wt 51.7 kg
[2019-12-20] MEDS ORDERED: MOM30SS PO (11:35)
[2019-12-20] MEDS ORDERED: ACET-683 PO (11:35)
[2019-12-20] MEDS ORDERED: GNPLIQ18 PO (11:35)
[2019-12-20] MEDS ORDERED: ACET1TAB55 PO (11:37)
[2019-12-20 11:38] LABS: VENOUS BASE EXCESS -2.8 (-2.0-2.0); VENOUS HCO3 23.4 MEQ/L (23.0-27.0); VENOUS O2 SATURATION 73.2 % (60.0-80.0); VENOUS PARTIAL PRESSURE CO2 46.6 mmHg (38.0-50.0); VENOUS PARTIAL PRESSURE O2 44.2 mmHg (30.0-50.0); VENOUS PH 7.319 UNITS (7.330-7.430); VENOUS STANDARD HCO3 21.7 MEQ/L; VENOUS TOTAL CO2 24.8 MEQ/L (24.0-28.0)
[2019-12-20 11:47] LABS: HEMOGLOBIN 9.4 g/dl (12.0-15.5); MEAN CORPUSCULAR HGB CONC 32.4 g/dl (32.0-36.5); MEAN CORPUSCULAR VOLUME 98.6 fl (80.0-96.0); PLATELET COUNT, AUTOMATED 217 10^3/uL (150-450); RED BLOOD COUNT 2.94 10^6/uL (4.00-5.40); WHITE BLOOD COUNT 12.5 10^3/uL (4.0-10.0)
--- NOTE | 2019-12-20 11:57 | REP ---
Portable chest x-ray: Single view. History: Respiratory distress. Comparison chest x-ray: 2018. Findings: Monitoring electrodes overlie the chest along with oxygen delivery tubing. A bipolar pacemaker is seen in the right heart. The lungs are exposed at a somewhat lesser level of inspiration. There is increased density in the left base consistent with an infiltrate. Right lung is clear. Heart is not felt to be enlarged. Impression: Left lower lobe infiltrate consistent with pneumonia. . Pacemaker in place. Electronically Signed by Federico Walker MD 12/20/2019 11:49 A
[2019-12-20 12:12] LABS: BLOOD UREA NITROGEN 25 MG/DL (7-18); CALCIUM LEVEL 7.7 MG/DL (8.8-10.2); CARBON DIOXIDE LEVEL 25 MEQ/L (21-32); CHLORIDE LEVEL 114 MEQ/L (98-107); GLOMERULAR FILTRATION RATE > 60.0 (>32); GLUCOSE, FASTING 98 MG/DL (70-100); SODIUM LEVEL 144 MEQ/L (136-145)
[2019-12-20] MEDS ORDERED: PIPERACILLIN/TAZOBACTAM SOD 3.375 GM in D5W MINI-BAG PLUS 50 ML IV ONE (12:45)
[2019-12-20] MEDS: SENOKOT S TAB PO SCH (16:30)
[2019-12-20] MEDS: DIVALPROEX 125 MG TAB PO SCH (16:30)
[2019-12-20 17:00] VITALS: BP 139/72
[2019-12-20] MEDS ORDERED: ACETAMINOPHEN TAB 650MG DOSE (2X325MG) PO PRN (17:00)
[2019-12-20] MEDS: QUEtiapine FUMARATE 50 MG TAB PO SCH (17:00)
[2019-12-20] MEDS ORDERED: BISACODYL 10 MG SUPP PR PRN (17:00)
--- NOTE | 2019-12-20 17:13 | HPEPDOC ---
General Date of Admission 12/20/19 Date of Service: Dec 20, 2019 Chief Complaint The patient is a 84-year-old female admitted with a reason for visit of AMS. Source: RN/MD, longterm records, Old records History of Present Illness 84year old DNR/DNI/Limited medical interventions, patient with dementia, swallowing problem was sent from [facility] for gurgling respiratory sounds, which did not improve with oral suction hypotension BP of 68/48, and hypoxia of high 80s in room air with suspicion for aspiration. In the ED CXR showed Left lower lobe infiltrates. She was admitted for aspiration pneumonia. No history could be gotten from Patient due to her dementia. History was taken from long-term records and old hospital records and from ED physician. She did say she has cough for a long time, however said nothing comes up followed some commands however was laughing and smiling inappropriately. When nurses turned her over she started shouting and told " leave me alone". Home Medications Scheduled Acetaminophen (Acetaminophen) 500 Mg Tablet, 500 MG PO TID, (Reported) Aspirin (Aspirin EC) 325 Mg Tablet.dr, 325 MG PO DAILY, (Reported) Calcium Carbonate (Tums) 200 Mg Tab.chew, 500 MG PO BID, (Reported) 900 and 1600 Citalopram Hydrobromide (Celexa) 10 Mg Tablet, 10 MG PO QPM, (Reported) Digoxin (Digoxin) 125 Mcg Tablet, 125 MCG PO DAILY, (Reported) Divalproex Sodium (Depakote) 125 Mg Tablet.dr, 125 MG PO BID, (Reported) 800 and 1600 Lactose-Reduced Food (Ensure Enlive) 237 Ml Liquid, 240 ML PO BID, (Reported) Magnesium Oxide (Magnesium Oxide) 400 Mg Tablet, 400 MG PO DAILY, (Reported) Metoprolol Succinate (Metoprolol Succinate) 100 Mg Tab.er.24h, 100 MG PO QPM, (Reported) HOLD FOR SBP <95 OR PULSE <50 Potassium Chloride (Potassium Chloride) 20 Meq Tablet.er, 20 MEQ PO DAILY, (Reported) Quetiapine Fumarate (Quetiapine Fumarate) 50 Mg Tablet, 50 MG PO BID, (Reported) hold for lethargy 900 and 1700 Sennosides/Docusate Sodium (Senna-S Tablet) 1 Tab Tab, 2 TAB PO BID, (Reported) 900 and 1600 Scheduled PRN Acetaminophen (Acetaminophen) 650 Mg Supp.rect, 650 MG TX Q4H PRN for PAIN / FEVER, (Reported) Acetaminophen (Acetaminophen) 325 Mg Tablet, 650 MG PO Q4H PRN for PAIN, (Reported) Albuterol Sulf (Albuterol Sulfate) 2.5 Mg/3 Ml Nebu, 2.5 MG INH Q2H PRN for WHEEZING, (Reported) Bisacodyl (Dulcolax) 10 Mg Sup, 10 MG TX DAILY PRN for CONSTIPATION, (Reported) Guaifenesin/Dextromethorphan (Tussin Dm Syrup) 118 Ml Syrup, 10 ML PO Q4H PRN for COUGH, (Reported) Milk Of Magnesia (Milk of Magnesia) 2,400 Mg/10 Ml Oral.susp, 10 ML PO DAILY PRN for CONSTIPATION, (Reported) Sodium Phosphate,Mcpherson-Dibasic (Enema Rftgn-Vs-Djf) 1 Bethany Beth[place], 1 B[place] DAILY PRN for CONSTIPATION, (Reported) Allergies Coded Allergies: prednisone (Verified Allergy, Severe, anaphylaxis, 03/02/19) Quinolones (Verified Allergy, Intermediate, rash, 03/02/19) ciprofloxacin (Verified Allergy, Intermediate, RASH, 03/02/19) pseudoephedrine (Verified Allergy, Unknown, 03/02/19) morphine (Verified Adverse Reaction, Intermediate, behavorial issues, 03/02/19) levofloxacin (Verified Adverse Reaction, Unknown, HOT HAND AT IV SITE, 03/02/19) Past Medical History Medical History Dementia with agitation, dysphagia, Atrial fibrillation, chronic venous insufficiency, hypomagnesemia, hypokalemia,dorsalgia, 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 dilatation and curettage many years ago. bladder tumors removed in 2006 and 2010. pacemaker inserted in 2017 laparoscopic oophorectomy in 2007. surgery on her great toe. Left eye lid surgery Family History Her father had prostate cancer. Mother had ovarian cancer Social History * Smoker: Denies Alcohol: Denies Drugs: denies A-FIB/CHADSVASC A-FIB History Current/History of A-Fib/PAF?: Yes Current PO Anticoag Therapy: No Review of Systems Constitutional: Denies: Chills, Fever, Night Sweats Pulmonary: Reports: Cough Cardiovascular: Denies: Chest Pain, Palpitations, Orthopnea, Paroxysmal Noc. Dyspnea, Lt Headedness Gastrointestinal: Denies: Nausea, Vomiting, Abdominal Pain, Diarrhea Neurological: Reports: Confusion; Denies: Weakness, Numbness, Change in speech Psych: Reports: Anxiety, Memory Issues Physical Examination General Exam: Positive: Alert, No Acute Distress Eye Exam: Positive: PERRLA, Conjunctiva & lids normal, EOMI; Negative: Sclera icteric ENT Exam: Positive: Atraumatic, Mucous membr. moist/pink, Pharynx Normal Neck Exam: Positive: Supple; Negative: JVD, thyromegaly Chest Exam: Positive: Other (bibasilar crackles, coarse breath sounds with conducted sounds) Heart Exam: Positive: Rate Normal, Irregular Rhythm, Normal S1, Normal S2; Negative: Murmurs, Rubs Telemetry: Positive: Atrial fibrillation Abdomen Exam: Positive: Normal bowel sounds, Soft; Negative: Tenderness, Hepatospenomegaly Extremity Exam: Positive: Normal pulses; Negative: Clubbing, Cyanosis, Edema Vital Signs Vital Signs Date Time Temp Pulse Resp B/P (MAP) Pulse Ox O2 Delivery O2 Flow Rate FiO2 12/20/19 10:57 Room Air 100 12/20/19 10:48 79 22 112/58 100 Laboratory Data Labs 24H Laboratory Tests 2 12/20/19 11:31: Nucleated Red Blood Cells % (auto) 0.0, Blood Gas Bicarbonate Standard 21.7, Venous Blood pH 7.319L, Venous Blood Partial Pressure CO2 46.6, Venous Blood Partial Pressure O2 44.2, Venous Blood Total Carbon Dioxide 24.8, Venous Blood HCO3 23.4, Venous Blood Oxygen Saturation 73.2, Venous Blood Base Excess -2.8L, Anion Gap 5L, Glomerular Filtration Rate > 60.0, Calcium Level 7.7L CBC/BMP Laboratory Tests 12/20/19 11:31 Microbiology Microbiology 12/20/19 Blood Culture, Received Pending Assessment/Plan 84year old DNR/DNI/Limited medical interventions, patient with dementia, swallowing problem was sent from [facility] for gurgling respiratory sounds, which did not improve with oral suction hypotension BP of 68/48, and hypoxia of high 80s in room air with suspicion for aspiration. In the ED CXR showed Left lower lobe infiltrates. She was admitted for aspiration pneumonia. Aspiration Pneumonia Zosyn, blood cultures Hypotension improved with IVF, continue ivf reduced metoprolol with hold parameters. Dysphagia ST evaluation NPO now. Dementia with behavioural disturbabces continue seroquel, celexa, depakote Atrial fibrillation chronic continue digoxin, metoprolol lower dose with hold parameters. ASA Hypomagnesemia continue supplementation Plan / VTE VTE Prophylaxis Ordered?: Yes JOZEF OLIVO MD Dec 20, 2019 13:39
[2019-12-20] MEDS: METOPROLOL SUCC (TopROL XL) 50MG **XL** TAB PO SCH (17:26)
[2019-12-20] MEDS: CitaloPRAM (CeleXA) 10 MG TABLET PO SCH (17:26)
[2019-12-20] MEDS: D5W/0.9% SODIUM CHLORIDE 1,000 ML IV SCH (17:54)
[2019-12-20] MEDS ORDERED: METOPROLOL SUCC (TopROL XL) 100MG *XL* TAB PO SCH (18:00)
[2019-12-20] MEDS: PIPERACILLIN/TAZOBACTAM SOD 3.375 GM in D5W MINI-BAG PLUS 50 ML IV SCH (20:24)
[2019-12-20 22:00] VITALS: BP 139/73
[2019-12-20] MEDS: HALOPERIDOL 5 MG/ML VIAL (J1630) IV PRN (23:15)
[2019-12-21] MEDS: D5W/0.9% SODIUM CHLORIDE 1,000 ML IV SCH ×3 (02:11→22:06)
[2019-12-21] MEDS: PIPERACILLIN/TAZOBACTAM SOD 3.375 GM in D5W MINI-BAG PLUS 50 ML IV SCH ×4 (02:11→19:57)
[2019-12-21 06:00] VITALS: BP 136/74
[2019-12-21 07:30] LABS: HEMATOCRIT 36.4 % (36.0-47.0); HEMOGLOBIN 11.2 g/dl (12.0-15.5); MEAN CORPUSCULAR HEMOGLOBIN 31.6 pg (27.0-33.0); MEAN CORPUSCULAR HGB CONC 30.8 g/dl (32.0-36.5); MEAN CORPUSCULAR VOLUME 102.8 fl (80.0-96.0); PLATELET COUNT, AUTOMATED 239 10^3/uL (150-450); RED BLOOD COUNT 3.54 10^6/uL (4.00-5.40); WHITE BLOOD COUNT 11.3 10^3/uL (4.0-10.0)
[2019-12-21] MEDS: DIVALPROEX 125 MG TAB PO SCH ×2 (08:00→16:00)
[2019-12-21 08:01] LABS: BLOOD UREA NITROGEN 19 MG/DL (7-18); CARBON DIOXIDE LEVEL 22 MEQ/L (21-32); CHLORIDE LEVEL 108 MEQ/L (98-107); CREATININE FOR GFR 0.86 MG/DL (0.55-1.30); GLOMERULAR FILTRATION RATE > 60.0 (>32); GLUCOSE, FASTING 123 MG/DL (70-100); POTASSIUM SERUM 4.3 MEQ/L (3.5-5.1); SODIUM LEVEL 137 MEQ/L (136-145)
[2019-12-21] MEDS: DIGOXIN 0.125 MG TAB PO SCH (08:34)
[2019-12-21] MEDS: ASPIRIN ENTERIC 325 MG TAB PO SCH (08:34)
[2019-12-21] MEDS: MAGNESIUM OXIDE 400 MG TAB (MAG-OX) PO SCH (08:35)
[2019-12-21] MEDS: QUEtiapine FUMARATE 50 MG TAB PO SCH ×2 (08:35→16:14)
[2019-12-21] MEDS: SENOKOT S TAB PO SCH ×2 (08:35→16:00)
[2019-12-21] MEDS: POTASSIUM CHLORIDE 10 MEQ SR TABLET PO SCH (08:35)
[2019-12-21] MEDS ORDERED: VARIBAR NECTAR 40% w/v 240ML SUSP BTL As Ordered ONE (12:04)
[2019-12-21] MEDS ORDERED: VARIBAR PUDDING 40% w/v 230ML TUBE As Ordered ONE (12:04)
[2019-12-21] MEDS ORDERED: E-Z-PAQUE 96% w/w SUSP 176GM BTL As Ordered ONE (12:04)
[2019-12-21] MEDS ORDERED: BARIUM SULFATE 700 MG TABLET (E-Z-DISK) As Ordered ONE (12:04)
--- NOTE | 2019-12-21 12:45 | IPNPDOC ---
Subjective Date Seen The patient was seen on 12/21/19. Subjective Chief Complaint/HPI Patient more conversant today. denied any cough. Says feels good , no fever or chills denies any SOB or chest pain, denies any abdominal pain or nausea. says she is cold. Objective Physical Examination General Exam: Positive: Alert, No Acute Distress Eye Exam: Positive: PERRLA, Conjunctiva & lids normal, EOMI; Negative: Sclera icteric ENT Exam: Positive: Atraumatic, Mucous membr. moist/pink, Pharynx Normal Neck Exam: Positive: Supple; Negative: JVD, thyromegaly Chest Exam: Positive: Other (bibasilar crackles, coarse breath sounds with conducted sounds) Heart Exam: Positive: Rate Normal, Irregular Rhythm, Normal S1, Normal S2; Negative: Murmurs, Rubs Telemetry: Positive: Atrial fibrillation Abdomen Exam: Positive: Normal bowel sounds, Soft; Negative: Tenderness, Hepatospenomegaly Extremity Exam: Positive: Normal pulses; Negative: Clubbing, Cyanosis, Edema Assessment /Plan Assessment 84year old DNR/DNI/Limited medical interventions, patient with PMH of Dementia with agitation, dysphagia, Atrial fibrillation, chronic venous insufficiency, hypomagnesemia, hypokalemia,dorsalgia, Syncope 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 In the ED CXR showed Left lower lobe infiltrates. She was admitted for aspiration pneumonia. Aspiration Pneumonia Zosyn, blood cultures Acute respiratory failure with hypoxia on admission due to aspiration now mental status back to baseline Acute metabolic encephalopathy on the back ground of dementia now resolved. Hypotension improved with IVF, continue ivf reduced metoprolol with hold parameters. Dysphagia ST evaluation NPO now. Dementia with behavioural disturbabces continue seroquel, celexa, depakote Atrial fibrillation chronic continue digoxin, metoprolol lower dose with hold parameters. ASA Hypomagnesemia continue supplementation Plan/VTE VTE Prophylaxis Ordered?: Yes VS, I&O, 24H, Fishbone Vital Signs/I&O Vital Signs Date Time Temp Pulse Resp B/P (MAP) Pulse Ox O2 Delivery O2 Flow Rate FiO2 12/21/19 08:34 84 12/21/19 06:00 98.6 18 136/74 (94) 97 Nasal Cannula 2.0 12/20/19 10:57 100 I&O- Last 24 Hours up to 6 AM 12/21/19 06:00 Intake Total 100 ml Output Total 0 ml Balance 100 ml Laboratory Data 24H LABS Laboratory Tests 2 12/21/19 07:20: Nucleated Red Blood Cells % (auto) 0.0, Anion Gap 7L, Glomerular Filtration Rate > 60.0, Calcium Level 9.0# CBC/BMP Laboratory Tests 12/21/19 07:20 Microbiology Microbiology 12/20/19 Blood Culture, Received Pending 12/20/19 Blood Culture - Preliminary, Resulted No growth after 24 hours . All specim... JOZEF OLIVO MD Dec 21, 2019 12:44
[2019-12-21 14:00] VITALS: BP 137/75
--- NOTE | 2019-12-21 17:35 | REP ---
Examination Requested: Cookie Swallow Reason For Exam: Dysphasia The procedure was performed by NARINDER Gant, under the direct supervision of Dr. Walker. The procedure was performed with Laurie Shen from speech pathology present. 5 ml aliquots of honey, and pudding consistency barium was administered. Penetration was visualized with both honey and pudding thick consistency barium. The detailed report of this examination will be provided by speech pathology. 1.3 minutes of fluoroscopy time was utilized for this procedure. Reviewed by NARINDER Jefferson 12/21/2019 03:41 P Electronically Signed by Federico Walker MD 12/21/2019 05:27 P
[2019-12-21] MEDS: METOPROLOL SUCC (TopROL XL) 50MG **XL** TAB PO SCH (18:00)
[2019-12-21] MEDS: CitaloPRAM (CeleXA) 10 MG TABLET PO SCH (18:00)
[2019-12-21 19:28] VITALS: BP 109/72
--- NOTE | 2019-12-22 00:15 | ECGEPIP ---
[facility] - ED Test Date: 2019-12-20 Pat Name: DEEPTI VALLES Department: Room: - Gender: Female Representative Personal Service: JFaiza : 1935 Requested By: SIXTO Moser Order Number: [id number] Reading MD: Matty Nino Measurements Intervals Lamy Rate: 75 P: 128 DE: 221 QRS: -8 QRSD: 146 T: -30 QT: 426 QTc: 478 Interpretive Statements ELECTRONIC ATRIAL PACEMAKER ELECTRONIC VENTRICULAR PACEMAKER Electronically Signed on 12-22-2019 0:15:16 EDT by Matty Nino
[2019-12-22] MEDS: PIPERACILLIN/TAZOBACTAM SOD 3.375 GM in D5W MINI-BAG PLUS 50 ML IV SCH ×4 (01:48→20:48)
[2019-12-22 06:48] VITALS: BP 160/80
[2019-12-22] MEDS: DIVALPROEX 125 MG TAB PO SCH ×2 (08:00→16:00)
[2019-12-22] MEDS: ASPIRIN ENTERIC 325 MG TAB PO SCH (09:00)
[2019-12-22] MEDS: POTASSIUM CHLORIDE 10 MEQ SR TABLET PO SCH (09:00)
[2019-12-22] MEDS: MAGNESIUM OXIDE 400 MG TAB (MAG-OX) PO SCH (09:00)
[2019-12-22] MEDS: QUEtiapine FUMARATE 50 MG TAB PO SCH ×2 (09:00→17:00)
[2019-12-22] MEDS: DIGOXIN 0.125 MG TAB PO SCH (09:00)
[2019-12-22] MEDS: SENOKOT S TAB PO SCH ×2 (09:00→16:00)
[2019-12-22] MEDS: D5W/0.9% SODIUM CHLORIDE 1,000 ML IV SCH ×2 (09:19→20:15)
--- NOTE | 2019-12-22 11:32 | IPNPDOC ---
Subjective Date Seen The patient was seen on 12/22/19. Subjective Chief Complaint/HPI No new issues overnight answers when spoken too but sleeping this am. easily arousable. no fever no diarrhea, no vomiting. Objective Physical Examination General Exam: Positive: Alert, No Acute Distress Eye Exam: Positive: PERRLA, Conjunctiva & lids normal, EOMI; Negative: Sclera icteric ENT Exam: Positive: Atraumatic, Mucous membr. moist/pink, Pharynx Normal Neck Exam: Positive: Supple; Negative: JVD, thyromegaly Chest Exam: Positive: Other (bibasilar crackles, coarse breath sounds with conducted sounds) Heart Exam: Positive: Rate Normal, Irregular Rhythm, Normal S1, Normal S2; Negative: Murmurs, Rubs Telemetry: Positive: Atrial fibrillation Abdomen Exam: Positive: Normal bowel sounds, Soft; Negative: Tenderness, Hepatospenomegaly Extremity Exam: Positive: Normal pulses; Negative: Clubbing, Cyanosis, Edema Assessment /Plan Assessment 84year old DNR/DNI/Limited medical interventions, patient with PMH of Dementia with agitation, dysphagia, Atrial fibrillation, chronic venous insufficiency, hypomagnesemia, hypokalemia,dorsalgia, Syncope associated with 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 In the ED CXR showed Left lower lobe infiltrates. She was admitted for aspiration pneumonia. Aspiration Pneumonia Zosyn, blood cultures Acute respiratory failure with hypoxia on admission now resolved acute metabolic encephalopathy on the back ground of dementia now resolved. Hypotension improved with IVF, continue ivf reduced metoprolol with hold parameters. Dysphagia ST evaluation appreciated NPO IVF. Dementia with behavioural disturbabces continue seroquel, celexa, depakote Atrial fibrillation chronic continue digoxin, metoprolol lower dose with hold parameters. ASA Hypomagnesemia continue supplementation Plan/VTE VTE Prophylaxis Ordered?: Yes VS, I&O, 24H, Fishbone Vital Signs/I&O Vital Signs Date Time Temp Pulse Resp B/P (MAP) Pulse Ox O2 Delivery O2 Flow Rate FiO2 12/22/19 08:00 97.7 12/22/19 06:48 107 18 160/80 (106) 94 12/21/19 19:50 2.0 12/21/19 19:28 Nasal Cannula 12/20/19 10:57 100 I&O- Last 24 Hours up to 6 AM 12/22/19 06:00 Intake Total 2450 ml Output Total 0 ml Balance 2450 ml Laboratory Data Microbiology Microbiology 12/20/19 Blood Culture - Preliminary, Resulted No growth after 24 hours . All specim... 12/20/19 Blood Culture - Preliminary, Resulted No growth after 24 hours . All specim... JOZEF OLIVO MD Dec 22, 2019 11:32
[2019-12-22 14:00] VITALS: BP 154/82
[2019-12-22] MEDS: METOPROLOL SUCC (TopROL XL) 50MG **XL** TAB PO SCH (17:06)
[2019-12-22] MEDS: CitaloPRAM (CeleXA) 10 MG TABLET PO SCH (17:06)
[2019-12-22 20:31] VITALS: BP 171/119
[2019-12-22 20:33] VITALS: BP 172/100
[2019-12-22 22:00] VITALS: BP 152/86
[2019-12-23] MEDS: PIPERACILLIN/TAZOBACTAM SOD 3.375 GM in D5W MINI-BAG PLUS 50 ML IV SCH ×4 (01:09→20:26)
[2019-12-23] MEDS: D5W/0.9% SODIUM CHLORIDE 1,000 ML IV SCH ×3 (03:15→19:55)
[2019-12-23 06:19] VITALS: BP 176/89
[2019-12-23] MEDS: QUEtiapine FUMARATE 50 MG TAB PO SCH ×2 (09:00→15:36)
[2019-12-23] MEDS: POTASSIUM CHLORIDE 10 MEQ SR TABLET PO SCH (09:00)
[2019-12-23] MEDS: DIGOXIN 0.125 MG TAB PO SCH (09:00)
[2019-12-23] MEDS: SENOKOT S TAB PO SCH ×2 (09:00→15:36)
[2019-12-23] MEDS: MAGNESIUM OXIDE 400 MG TAB (MAG-OX) PO SCH (09:00)
[2019-12-23] MEDS: ASPIRIN ENTERIC 325 MG TAB PO SCH (09:00)
[2019-12-23] MEDS: DIVALPROEX 125 MG TAB PO SCH ×2 (09:10→15:35)
[2019-12-23 14:00] VITALS: BP 158/92
[2019-12-23] MEDS: CitaloPRAM (CeleXA) 10 MG TABLET PO SCH (15:36)
[2019-12-23] MEDS: METOPROLOL SUCC (TopROL XL) 50MG **XL** TAB PO SCH (15:36)
[2019-12-23 20:00] VITALS: BP 160/92
[2019-12-23] MEDS: HALOPERIDOL 5 MG/ML VIAL (J1630) IV PRN (21:48)
[2019-12-24] MEDS: PIPERACILLIN/TAZOBACTAM SOD 3.375 GM in D5W MINI-BAG PLUS 50 ML IV SCH ×2 (01:54→07:30)
[2019-12-24] MEDS: MAGNESIUM OXIDE 400 MG TAB (MAG-OX) PO SCH (07:30)
[2019-12-24] MEDS: DIVALPROEX 125 MG TAB PO SCH (07:30)
[2019-12-24] MEDS: DIGOXIN 0.125 MG TAB PO SCH (07:30)
[2019-12-24] MEDS: ASPIRIN ENTERIC 325 MG TAB PO SCH (07:30)
[2019-12-24] MEDS: SENOKOT S TAB PO SCH ×2 (07:31→12:29)
[2019-12-24] MEDS: QUEtiapine FUMARATE 50 MG TAB PO SCH ×2 (07:31→12:30)
[2019-12-24] MEDS: POTASSIUM CHLORIDE 10 MEQ SR TABLET PO SCH (07:31)
[2019-12-24] MEDS ORDERED: SCOPOLAMINE 1MG TRANSDERMAL PATCH TOP PRN (11:00)
[2019-12-24] MEDS ORDERED: ONDANSETRON 4 MG ORAL DISINTEGRATING TAB (Q0162 PER 1MG) PO PRN (11:00)
[2019-12-24] MEDS ORDERED: LORazepam 1 MG TAB PO PRN (11:00)
[2019-12-25] MEDS: MORPHINE 10MG/0.5ML ORAL CONCENTRATE SOLUTION U/D SL PRN ×2 (07:37→07:38)
[2019-12-25] MEDS: QUEtiapine FUMARATE 50 MG TAB PO SCH (07:39)
[2019-12-25] MEDS: SENOKOT S TAB PO SCH (07:39)
[2019-12-25] MEDS: MAGNESIUM OXIDE 400 MG TAB (MAG-OX) PO SCH (07:39)
[2019-12-25] MEDS ORDERED: MORP20SO3 PO (12:30)
[2019-12-25] MEDS ORDERED: HYOS125TA PO (12:30)
[2019-12-25] MEDS ORDERED: LORA0.5T5 PO (12:30)
--- NOTE | 2019-12-25 14:51 | DS.PDOC ---
Discharge Summary General Date of Admission Dec 20, 2019 at 14:22 Date of Discharge 12/25/19 Discharge Summary PROCEDURES PERFORMED DURING STAY: [None]. DISCHARGE DIAGNOSES: Aspiration pneumonia Acute respiratory failure with hypoxia Acute metabolic encephalopathy due to infection on the back ground of dementia. Advanced dementia. 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 In the ED CXR showed Left lower lobe infiltrates. She was admitted for aspiration pneumonia. She recieved 4 days of zosyn with improvement of her symptoms and improvement of her hypoxia. However pateint has severe dysphagia so remains at reccurent risk for aspiration and recurrent pneumonia. As per [facility] pateitn did not want a feeding tube. Discussed with HCP Matilde regarding plans of car and she wanted the pateint to be kept comfortable no antibiotics no IVF. Patient was changed to [employer] status. Pateint discharged back to [place] in [facility] [employer] status and medication available for pain or discomfort or anxiety as needed. Aspiration Pneumonia partially treated. Acute respiratory failure with hypoxia on admission now resolved acute metabolic encephalopathy on the back ground of dementia now resolved. Dysphagia chronic diet as previous to admission Dementia with behavioural disturbabces continue seroquel, celexa, depakote Atrial fibrillation chronic meds stopped due to [employer] status Hypomagnesemia supplementation stopped due to [employer] status. DISCHARGE MEDICATIONS: Please see below. ALLERGIES: Please see below. PHYSICAL EXAMINATION ON DISCHARGE: VITAL SIGNS: Please see below. General Exam: Positive: Alert, No Acute Distress Eye Exam: Positive: PERRLA, Conjunctiva & lids normal, EOMI; Negative: Sclera icteric ENT Exam: Positive: Atraumatic, Mucous membr. moist/pink, Pharynx Normal Neck Exam: Positive: Supple; Negative: JVD, thyromegaly Chest Exam: Positive: Other (bibasilar crackles, coarse breath sounds with conducted sounds) Heart Exam: Positive: Rate Normal, Irregular Rhythm, Normal S1, Normal S2; Negative: Murmurs, Rubs Telemetry: Positive: Atrial fibrillation Abdomen Exam: Positive: Normal bowel sounds, Soft; Negative: Tenderness, Hepatospenomegaly Extremity Exam: Positive: Normal pulses; Negative: Clubbing, Cyanosis, Edema LABORATORY DATA: Please see below. ACTIVITY: [As tolerated]. DIET: As tolerated DISPOSITION: [facility]. DISCHARGE INSTRUCTIONS: Discharge to NH in [facility] [employer] status. DISCHARGE CONDITION: [Stable]. TIME SPENT ON DISCHARGE: 35 minutes. Vital Signs/I&Os Vital Signs Date Time Temp Pulse Resp B/P (MAP) Pulse Ox O2 Delivery O2 Flow Rate FiO2 12/25/19 08:07 18 12/25/19 07:37 Room Air 12/23/19 20:00 99.9 92 160/92 (114) 96 12/22/19 20:31 2.0 12/20/19 10:57 100 I&O- Last 24 Hours up to 6 AM 12/25/19 06:00 Intake Total 0 ml Balance 0 ml Microbiology Microbiology 12/20/19 Blood Culture - Preliminary, Resulted No Growth after 72 hours. All specime... 12/20/19 Blood Culture - Final, Complete NO GROWTH AFTER 5 DAYS Discharge Medications Scheduled Acetaminophen (Acetaminophen) 500 Mg Tablet, 500 MG PO TID, (Reported) Citalopram Hydrobromide (Celexa) 10 Mg Tablet, 10 MG PO QPM, (Reported) Divalproex Sodium (Depakote) 125 Mg Tablet.dr, 125 MG PO BID, (Reported) 800 and 1600 Lactose-Reduced Food (Ensure Enlive) 237 Ml Liquid, 240 ML PO BID, (Reported) Quetiapine Fumarate (Quetiapine Fumarate) 50 Mg Tablet, 50 MG PO BID, (Reported) hold for lethargy 900 and 1700 Scheduled PRN Acetaminophen (Acetaminophen) 650 Mg Supp.rect, 650 MG SC Q4H PRN for PAIN / FEVER, (Reported) Acetaminophen (Acetaminophen) 325 Mg Tablet, 650 MG PO Q4H PRN for PAIN, (Reported) Albuterol Sulf (Albuterol Sulfate) 2.5 Mg/3 Ml Nebu, 2.5 MG INH Q2H PRN for WHEEZING, (Reported) Bisacodyl (Dulcolax) 10 Mg Sup, 10 MG SC DAILY PRN for CONSTIPATION, (Reported) Guaifenesin/Dextromethorphan (Tussin Dm Syrup) 118 Ml Syrup, 10 ML PO Q4H PRN for COUGH, (Reported) Hyoscyamine Sulfate (Hyoscyamine Sulfate) 0.125 Mg Tab.subl, 0.125 MG PO Q4HP PRN for TERMINAL SECRETIONS Use sublingually if unable to swallow Lorazepam (Lorazepam) 0.5 Mg Tablet, 0.5 MG PO Q4HP PRN for ANXIETY/AGITATION Use sublingually if unable to swallow Milk Of Magnesia (Milk of Magnesia) 2,400 Mg/10 Ml Oral.susp, 10 ML PO DAILY PRN for CONSTIPATION, (Reported) Morphine Sulfate (Morphine Sulfate) 100 Mg/5 Ml Solution, 0.25-1 ML PO Q2H PRN for PAIN OR DYSPNEA Use sublingually if unable to swallow Sodium Phosphate,Kendall-Dibasic (Enema [id number]) 1 Bethany Bethany, 1 BETHANY SC DAILY PRN for CONSTIPATION, (Reported) Allergies Coded Allergies: prednisone (Verified Allergy, Severe, anaphylaxis, 03/02/19) Quinolones (Verified Allergy, Intermediate, rash, 03/02/19) ciprofloxacin (Verified Allergy, Intermediate, RASH, 03/02/19) pseudoephedrine (Verified Allergy, Unknown, 03/02/19) morphine (Verified Adverse Reaction, Intermediate, behavorial issues, 03/02/19) levofloxacin (Verified Adverse Reaction, Unknown, HOT HAND AT IV SITE, 03/02/19) JOZEF OLIVO MD Dec 25, 2019 14:51
== END 2019-12-25 13:30 | DRG 177 ==
LOC: M ED 10:44 → EDBD 10:44 → M ED INP 14:22 → ENRESERVTM 15:10 → ENRESERVDT 15:10 → M MS5PR 16:00
PROVIDERS: ADMIT Internal Medicine Nephrology; ATTEND Internal Medicine Nephrology
DX: J69.0 Pneumonitis due to inhalation of food and vomit (principal); J96.01 Acute respiratory failure with hypoxia; G93.41 Metabolic encephalopathy; F03.91 Unspecified dementia, unspecified severity, with behavioral disturbance; I48.20 Chronic atrial fibrillation, unspecified; I45.2 Bifascicular block; R13.10 Dysphagia, unspecified; E83.42 Hypomagnesemia; E87.6 Hypokalemia; M54.9 Dorsalgia, unspecified; R55 Syncope and collapse; Z95.0 Presence of cardiac pacemaker; H35.30 Unspecified macular degeneration; I10 Essential (primary) hypertension; M19.90 Unspecified osteoarthritis, unspecified site; G47.00 Insomnia, unspecified; K58.9 Irritable bowel syndrome, unspecified; I87.2 Venous insufficiency (chronic) (peripheral); J45.909 Unspecified asthma, uncomplicated; Z51.5 Encounter for palliative care; Z79.899 Other long term (current) drug therapy; Z88.5 Allergy status to narcotic agent; Z88.8 Allergy status to other drugs, medicaments and biological substances; Z66 Do not resuscitate; Z79.82 Long term (current) use of aspirin; I95.9 Hypotension, unspecified